=== PATIENT | female | born 1985 | race Caucasian/White ===

== ENCOUNTER 2016-09-28 18:19 | Observation (INO) | payer BC, MEDICAID ==
[2016-09-28] MEDS ORDERED: DEXAMETHASONE 10 MG/ML VIAL PO STA (19:51)
[2016-09-28] MEDS ORDERED: ALBUTEROL NEB 2.5 MG/3 ML INH STA (19:51)
[2016-09-28] MEDS ORDERED: CHERRY SYRUP 10 ML UDC PO ONE (19:59)
[2016-09-28] MEDS ORDERED: DEXAMETHASONE 10 MG/ML VIAL ONE (19:59)
[2016-09-28] MEDS ORDERED: ALBUTEROL NEB 2.5 MG/3 ML INH ONE (19:59)
[2016-09-28] MEDS ORDERED: IOPAMIDOL-300 100 ML VIAL IVP ONE (21:06)
[2016-09-28] MEDS ORDERED: COLCHICINE 0.6 MG TABLET PO STA (22:02)
[2016-09-28] MEDS ORDERED: IBUPROFEN 800 MG TABLET PO STA (22:03)
[2016-09-28] MEDS ORDERED: TEMAZEPAM 15 MG CAPSULE PO PRN (22:17)
[2016-09-28] MEDS ORDERED: ONDANSETRON 4 MG/2 ML VIAL IVP PRN (22:17)
[2016-09-28] MEDS ORDERED: ACETAMINOPHEN 325 MG TABLET PO PRN (22:17)
[2016-09-28] MEDS ORDERED: IBUPROFEN 800 MG TABLET PO ONE (22:23)
[2016-09-28] MEDS ORDERED: KETOROLAC 30 MG/ML VIAL ONE (22:25)
[2016-09-28] MEDS ORDERED: KETOROLAC 60 MG/2 ML VIAL IVP STA (22:26)
[2016-09-28] MEDS ORDERED: ALBUTEROL NEB 2.5 MG/3 ML INH PRN (22:33)
[2016-09-28] MEDS: MORPHINE 2 MG/ML SYRINGE IVP PRN (23:40)
[2016-09-29] MEDS: LORazepam 2 MG/ML SYRINGE IVP PRN ×3 (00:45→12:35)
[2016-09-29] MEDS: MORPHINE 2 MG/ML SYRINGE IVP PRN ×2 (03:16→10:37)
[2016-09-29] MEDS: IBUPROFEN 800 MG TABLET PO SCH ×3 (06:36→21:14)
[2016-09-29] MEDS: SODIUM CHLORIDE FLUSH 0.9% 10 ML SYRINGE IVP SCH ×3 (06:37→21:15)
[2016-09-29] MEDS: SODIUM CHLORIDE FLUSH 0.9% 10 ML SYRINGE IVP PRN ×2 (10:38→12:35)
[2016-09-29] MEDS: ENOXAPARIN 40 MG/0.4 ML SYRINGE SUBQ SCH (10:39)
[2016-09-29] MEDS: COLCHICINE 0.6 MG TABLET PO SCH ×2 (10:45→21:14)
[2016-09-29] MEDS: POLYETHYLENE GLYCOL 3350 17 GM PACKET PO SCH (10:45)
[2016-09-30] MEDS: IBUPROFEN 800 MG TABLET PO SCH (06:09)
[2016-09-30] MEDS: SODIUM CHLORIDE FLUSH 0.9% 10 ML SYRINGE IVP SCH (06:09)
[2016-09-30] MEDS: POLYETHYLENE GLYCOL 3350 17 GM PACKET PO SCH (08:26)
[2016-09-30] MEDS: COLCHICINE 0.6 MG TABLET PO SCH (08:28)
[2016-09-30] MEDS: ENOXAPARIN 40 MG/0.4 ML SYRINGE SUBQ SCH (08:29)
[2016-09-30] MEDS ORDERED: SENNA 8.6 MG TABLET PO SCH (09:00)
[2016-09-30] MEDS ORDERED: DOCUSATE SODIUM 250 MG CAPSULE PO SCH (09:00)
== END 2016-09-30 09:50 | disposition home or self-care (01) ==
DX: I31.9 Disease of pericardium, unspecified (principal); R23.8 Other skin changes; R78.1 Finding of opiate drug in blood; R78.5 Finding of other psychotropic drug in blood; Z87.74 Personal history of (corrected) congenital malformations of heart and circulatory system
CPT/HCPCS: 36415; 71010; 71275; 80048; 80053; 80306; 81001; 82550; 82553; 83690; 83735; 84100; 84443; 84484; 85025; 85651; 86038; 86140; 87150; 93005; 93010; 93306; 96372; 96374; 96375; 96376; 99217; 99218; 99224; 99284; A9270; J1650; J2060; J7613; Q9967

== ENCOUNTER 2017-03-13 20:10 | Emergency (ER) | payer BC, MEDICAID ==
--- NOTE | 2017-03-13 21:16 | ED Physician Documentation ---
PD HPI CHEST PAIN - Stated complaint Stated Complaint: L SIDE RIB PX,FAST HB - Chief complaint Chief Complaint: Resp - History obtained from History obtained from: Patient - History of Present Illness Timing - onset: Other (31-year-old woman with history of childhood pectus excavatum repair was admitted here earlier this year for small pericardial effusion. Today at 1230 without antecedent trauma or movement she developed sharp left-sided chest pain worse with breathing. There is no associated cough , hemoptysis, pedal edema, or calf pain. No recent surgery or travel. She is not on exogenous estrogens. No possibility of . 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 - Present Medications Home Medications: Ambulatory Orders Medication Instructions Recorded Confirmed Albuterol Sulfate [Proair Hfa 2 puffs INH Q4H PRN 09/29/16 03/13/17 Inhaler] Ibuprofen [Motrin] 800 mg PO Q8H PRN #30 tablet 03/13/17 - Allergies Allergies/Adverse Reactions: Allergies Allergy/AdvReac Type Severity Reaction Status Date / Time Penicillins Allergy Unknown Verified 10/29/16 21:58 - Social History Does the pt smoke?: No Smoking Status: Never smoker Does the pt drink ETOH?: No Does the pt have substance abuse?: No - Immunizations Immunizations are current?: Yes - POLST Patient has POLST: No PD ED PE NORMAL - Vitals Vital signs reviewed: Yes - General General: Alert and oriented X 3, No acute distress - Cardiac Cardiac: RRR, No murmur, Other (Bedside ultrasound demonstrates no pericardial effusion) - Respiratory Respiratory: No respiratory distress, Clear bilaterally - Extremities Extremities: No edema, No calf tenderness / cord - Neuro Neuro: Alert and oriented X 3, Normal speech - Psych Psych: Normal mood, Normal affect Results - Vitals Vitals: Vital Signs - 24 hr 03/13/17 20:21 Temperature 36.6 C Heart Rate 80 Respiratory 18 Rate Blood Pressure 138/86 H O2 Saturation 99 Oxygen O2 Source Room air - EKG (time done) 2121 Rate: Rate (enter#) (70) Rhythm: NSR [place]: Normal Intervals: Normal [place] QRS: Normal Ischemia: Non specific changes (Flattened inferior and anterior T waves, unchanged from October 29 this year.) Computer interpretation: Agree with computer - Rads (name of study) 2v chest Radiology: EMP read contemporaneously (NAD) PD MEDICAL DECISION MAKING - ED course ED course: I considered pulmonary embolism in this patient. Clinically the pretest probability of pulmonary embolism is less than 15%. I applied to the PERC rules as follows: The patient's age is under 50, heart rate less than 100, oxygen saturation greater than 94%, the patient does not have a history of DVT or PE. Patient has no recent trauma or surgery. The patient has no hemoptysis. The patient is not on exogenous estrogens. The patient does not have clinical signs suggesting DVT. As such the patient ruled out for pulmonary embolism by PERC criteria. Departure - Departure Disposition: Home, Self Care Clinical Impression: Pleurisy Condition: Good Record reviewed to determine appropriate education?: Yes Instructions: ED Chest Pain Pleurisy Prescriptions: Ibuprofen [Motrin] 800 mg PO Q8H PRN #30 tablet PRN Reason: PAIN &/OR FEVER Comments: Call your doctor to arrange a follow-up appointment, make the next available appointment. In the interim, return anytime if worse or if new symptoms develop. Your blood pressure was elevated today on check into the emergency department. This does not mean that you have hypertension, it is a common phenomenon to come to the emergency department and have elevated blood pressure. I recommend that she see her primary care physician within the week to have it rechecked when you are feeling better.
--- NOTE | 2017-03-13 22:05 | XRAY Preliminary Report ---
Exam: XR Chest 2 View PA/LAT IMPRESSION: Negative 2-view chest radiography. [facility] SITE ID: [id number]
--- NOTE | 2017-03-13 22:07 | XRAY Report ---
EXAM: CHEST RADIOGRAPHY EXAM DATE: 03/13/2017 09:50 PM. CLINICAL HISTORY: Chest pain, pleuritic left. COMPARISON: 10/29/2016, CT 09/28/2016. TECHNIQUE: 2 views. FINDINGS: Lungs/Pleura: No focal opacities evident. No pleural effusion. No pneumothorax. Normal volumes. Mediastinum: Heart and mediastinal contours are unremarkable. Other: Mild pectus excavatum. Previous median sternotomy. IMPRESSION: Negative 2-view chest radiography. [facility] Referring Provider Line: [phone] SITE ID: [id number]
[2017-03-13 22:21] VITALS: BP 138/74
== END 2017-03-13 22:23 | disposition home or self-care (01) ==
LOC: ED 20:10
DX: R09.1 Pleurisy (principal); R03.0 Elevated blood-pressure reading, without diagnosis of hypertension; Z87.76 Personal history of (corrected) congenital malformations of integument, limbs and musculoskeletal system; Z87.01 Personal history of pneumonia (recurrent); Z86.79 Personal history of other diseases of the circulatory system
CPT/HCPCS: 71020; 93005; 99283; 99284

== ENCOUNTER 2017-07-01 19:59 | Emergency (ER) | payer BC, MEDICAID ==
[2017-07-01] MEDS ORDERED: BENZONATATE 100 MG CAPSULE PO STA (20:47)
[2017-07-01] MEDS ORDERED: DEXAMETHASONE 10 MG/ML VIAL PO STA (20:47)
--- NOTE | 2017-07-01 20:50 | ED Physician Documentation ---
PD HPI URI - Stated complaint Stated Complaint: SORE THROAT - Chief complaint Chief Complaint: Heent - History obtained from History obtained from: Patient - History of Present Illness Timing - onset: How many weeks ago (2) Timing duration: Weeks (2) Timing details: Gradual onset Pain level max: 3 Pain level now: 3 Associated symptoms: Nasal congestion, Rhinorrhea, Productive cough (clear phlegm, small specks of blood today). No: Fever, Chills Contributing factors: No: Sick contact, Travel, Immunocompromised, Unimmunized, COPD / asthma Improves by: Rest Worsened by: Activity, Breathing Similar symptoms before: Has not had sx before Recently seen: Not recently seen Review of Systems Ten Systems: 10 systems reviewed and negative Constitutional: denies: Fever, Chills GI: denies: Vomiting Skin: denies: Rash Musculoskeletal: denies: Neck pain, Back pain Neurologic: denies: Headache PD PAST MEDICAL HISTORY - Past Medical History Past Medical History: Yes Cardiovascular: None Respiratory: Pneumonia Neuro: None Endocrine/Autoimmune: None GI: None 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 - Present Medications Home Medications: Ambulatory Orders Medication Instructions Recorded Confirmed Albuterol Sulfate [Proair Hfa 2 puffs INH Q4H PRN 09/29/16 03/13/17 Inhaler] Ibuprofen [Motrin] 800 mg PO Q8H PRN #30 tablet 03/13/17 Benzonatate [Tessalon Perle] 100 - 200 mg PO TID PRN #30 capsule 07/01/17 Cetirizine HCl/Pseudoephedrine 1 each PO BID PRN #30 tab.er.12h 07/01/17 [Zyrtec-D Tablet] - Allergies Allergies/Adverse Reactions: Allergies Allergy/AdvReac Type Severity Reaction Status Date / Time Penicillins Allergy Unknown Verified 07/01/17 20:05 - Social History Does the pt smoke?: No Smoking Status: Never smoker Does the pt drink ETOH?: No Does the pt have substance abuse?: No - Immunizations Immunizations are current?: Yes Immunizations: TDAP >10years/unknown - POLST Patient has POLST: No PD ED PE NORMAL - Vitals Vital signs reviewed: Yes - General General: Alert and oriented X 3, No acute distress, Well developed/nourished - HEENT HEENT: PERRL, Ears normal, Moist mucous membranes, Pharynx benign - Neck Neck: Supple, no meningeal sign, No adenopathy - Cardiac Cardiac: RRR, Strong equal pulses - Respiratory Respiratory: No respiratory distress, Clear bilaterally - Abdomen Abdomen: Soft, Non tender, Non distended - Back Back: No CVA TTP, No spinal TTP - Derm Derm: Warm and dry, No rash - Neuro Neuro: Alert and oriented X 3 - Psych Psych: Normal mood, Normal affect Results - Vitals Vitals: Vital Signs - 24 hr 07/01/17 07/01/17 20:02 21:05 Temperature 36.7 C 36.8 C Heart Rate 87 86 Respiratory 20 16 Rate Blood Pressure 124/88 H 119/85 H O2 Saturation 99 100 Oxygen O2 Source Room air - Labs Labs: Laboratory Tests 07/01/17 20:34 Group A Strep Rapid Negative PD MEDICAL DECISION MAKING - ED course Complexity details: reviewed results, re-evaluated patient, considered differential, d/w patient ED course: Patient is a 31-year-old female with what appears to be a viral upper respiratory infection complicated by laryngitis. She has lost her voice over the past 2 days. Given dexamethasone here. Will place on cough medication as well as decongestants for home. She is very well-appearing, nontoxic. Afebrile. No evidence of peritonsillar abscess, strep. Patient counseled regarding signs and symptoms for which I believe and urgent re-evaluation would be necessary. Patient with good understanding of and agreement to plan and is comfortable going home at this time This document was made in part using voice recognition software. While efforts are made to proofread this document, sound alike and grammatical errors may occur. Departure - Departure Disposition: 01 Home, Self Care Clinical Impression: Viral URI Condition: Good Instructions: ED Laryngitis, ED URI Viral Follow-Up: Ortega Tidwell MD [Primary Care Provider] - Within 1 week Prescriptions: Benzonatate [Tessalon Perle] 100 - 200 mg PO TID PRN #30 capsule PRN Reason: Cough Cetirizine HCl/Pseudoephedrine [Zyrtec-D Tablet] 1 each PO BID PRN #30 tab.er.12h PRN Reason: Nasal Congestion Comments: Drink plenty of fluids. Return if you worsen. Rest your voice as much as possible. Discharge Date/Time: 07/01/17 21:05
[2017-07-01] MEDS ORDERED: DEXAMETHASONE 10 MG/ML VIAL ONE (21:00)
[2017-07-01] MEDS ORDERED: BENZONATATE 100 MG CAPSULE PO ONE (21:00)
[2017-07-01 21:07] VITALS: BP 119/85
[2017-07-01 21:19] LABS: RAPID STREP SCREEN REAGENT QC YELLOW (YELLOW)
== END 2017-07-01 21:05 | disposition home or self-care (01) ==
LOC: ED 19:59
DX: J06.9 Acute upper respiratory infection, unspecified (principal); B97.89 Other viral agents as the cause of diseases classified elsewhere
CPT/HCPCS: 87070; 87430; 99283; A9270

== ENCOUNTER 2017-12-27 12:48 | Outpatient (CLI) | payer BC, MEDICAID ==
[2017-12-27] MEDS ORDERED: GADOBUTROL 7.5 MMOL/7.5 ML SYRINGE ONE (13:12)
[2017-12-27] MEDS ORDERED: GADOBUTROL 7.5 MMOL/7.5 ML SYRINGE IVP ONE (13:55)
--- NOTE | 2017-12-28 12:42 | MRI Report ---
EXAM: MRI BRAIN WITHOUT AND WITH CONTRAST EXAM DATE: 12/27/2017 01:00 PM. CLINICAL HISTORY: 4-5 week history of bilateral blurred vision and visual impairment in both eyes. COMPARISON: None. TECHNIQUE: Multiplanar, multisequence T1-weighted and fluid-sensitive MR sequences of the brain were performed. Sequences optimized for orbits evaluation. Other: None. IV Contrast: 5.5 mL Gadavist . FINDINGS: Brain Volume: Normal for age. Parenchyma: No acute hemorrhage, mass, or infarct. No white matter lesions identified. No abnormal en hancement. Ventricles/Cisterns: No hydrocephalus. No abnormal extra-axial fluid collection or hemorrhage. Orbits: Symmetric and unremarkable. No evidence for an intraorbital mass, abnormal enhancement or pro ptosis. Unremarkable symmetric appearance of the lacrimal glands and extraocular muscles. No abnormal superior ophthalmic vein enlargement. No focal intraocular lesion. No edema or abnormal enhancement of the optic nerves. Unremarkable appearance of the optic chiasm. Sella [place]: The pituitary gland, cavernous sinuses, suprasellar cistern and optic chiasm are unrem arkable. IAC: Symmetric and unremarkable. Vasculature: Normal signal flow void is seen in the major arterial structures at the skull base. The dural sinuses are patent and enhance normally. Sinuses: Mild mucosal thickening in the paranasal sinuses, especially left ethmoid and maxillary. A l eft maxillary sinus air-fluid level may be present. Bones: No focal pathologic appearing marrow signal changes. Other: None. IMPRESSION: 1.Unremarkable MRI appearance of the brain and orbits. 2. Sinusitis, most evident in the left maxillary and ethmoid sinuses. [facility] Referring Provider Line: [phone] SITE ID: [id number]
== END 2017-12-27 12:49 | disposition home or self-care (01) ==
LOC: DI 12:48
PROVIDERS: ATTEND Ophthalmology
DX: H54.3 Unqualified visual loss, both eyes (principal); J32.0 Chronic maxillary sinusitis; J32.2 Chronic ethmoidal sinusitis
CPT/HCPCS: 70543; A9585

== ENCOUNTER 2018-01-25 21:30 | Emergency (ER) | payer BC, MEDICAID ==
--- NOTE | 2018-01-25 21:37 | ED Physician Documentation ---
PD HPI CHEST PAIN - Stated complaint Stated Complaint: CHEST PX - History obtained from History obtained from: Patient - History of Present Illness Timing - onset: How many days ago (2) Timing - duration: Days Timing - details: Abrupt onset, Intermittant, Waxing and waning Pain level max: 10 Pain level now: 5 Quality: Pain Location: Substernal (low midline chest) Radiation: Other (does not radiate) Improved by: Nothing Worsened by: Other (no exacerbating factors) Associated symptoms: No: Shortness of air, Diaphoresis, Nausea, Vomiting, Feeling faint / dizzy, Palpitations, Cough Recently seen: Other (similar symptoms last year, had inpatient w/u without diagnostic results (small pericardial effusion on CT but trivial on echo)) Review of Systems Constitutional: denies: Fever, Chills, Sweats Cardiac: reports: Chest pain / pressure. 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 - Present Medications Home Medications: Ambulatory Orders Medication Instructions Recorded Confirmed HYDROcod/ACETAM 5/325 [[place] 5/325] 1 - 2 ea PO Q6H PRN #15 tablet 01/26/18 LORazepam [Ativan] 0.5 - 1 mg PO Q6H PRN #14 tablet 01/26/18 - Allergies Allergies/Adverse Reactions: Allergies Allergy/AdvReac Type Severity Reaction Status Date / Time bee venom protein (honey bee) Allergy Anaphylaxis Verified 01/25/18 21:37 Penicillins Allergy Unknown Verified 07/01/17 20:05 - Social History Does the pt smoke?: No Smoking Status: Never smoker Does the pt drink ETOH?: No Does the pt have substance abuse?: No - Immunizations Immunizations are current?: Yes Immunizations: TDAP >10years/unknown - POLST Patient has POLST: No PD ED PE NORMAL - Vitals Vital signs reviewed: Yes - General General: Alert and oriented X 3, No acute distress, Well developed/nourished - Cardiac Cardiac: RRR, No murmur, No gallop, No rub - Respiratory Respiratory: No respiratory distress, Clear bilaterally - Abdomen Abdomen: Soft, Non tender - Derm Derm: Normal color, Warm and dry - Extremities Extremities: No edema Results - Vitals Vitals: Vital Signs - 24 hr 01/25/18 01/26/18 21:34 00:13 Temperature 36.4 C L 36.4 C L Heart Rate 97 70 Respiratory 16 20 Rate Blood Pressure 144/92 H 128/94 H O2 Saturation 98 99 Oxygen O2 Source Room air - EKG (time done) No standard instances Rate: Rate (enter#) (78) Rhythm: NSR [place]: Normal Intervals: Normal [place] QRS: Normal Ischemia: Normal ST segments, T wave inversion (V2, V3) Compare to prior EKG: Unchanged from prior EKG - Labs Labs: Laboratory Tests 01/25/18 01/25/18 01/25/18 22:20 22:20 22:20 WBC 10.3 RBC 4.94 Hgb 14.5 Hct 43.4 MCV 87.9 MCH 29.3 MCHC 33.4 RDW 13.4 Plt Count 300 MPV 7.4 L Neut # (Auto) 5.8 Lymph # (Auto) 3.2 [place] # (Auto) 0.9 Eos # (Auto) 0.4 Baso # (Auto) 0.1 Absolute Nucleated RBC 0.00 Nucleated RBC % 0.0 ESR Sodium 135 Potassium 3.3 L Chloride 104 Carbon Dioxide 23 Anion Gap 8.0 BUN 18 Creatinine 0.5 Estimated GFR (MDRD) 142 Glucose 97 Calcium 9.3 Total Bilirubin 0.8 AST 20 ALT 19 Alkaline Phosphatase 62 Total Creatine Kinase 356 H CK-MB (CK-2) 1.6 Troponin I 0.05 C-Reactive Protein < 1.0 Total Protein 7.2 Albumin 3.9 Globulin 3.3 Albumin/Globulin Ratio 1.2 Lipase 45 01/25/18 22:20 WBC RBC Hgb Hct MCV MCH MCHC RDW Plt Count MPV Neut # (Auto) Lymph # (Auto) [place] # (Auto) Eos # (Auto) Baso # (Auto) Absolute Nucleated RBC Nucleated RBC % ESR 1 Sodium Potassium Chloride Carbon Dioxide Anion Gap BUN Creatinine Estimated GFR (MDRD) Glucose Calcium Total Bilirubin AST ALT Alkaline Phosphatase Total Creatine Kinase CK-MB (CK-2) Troponin I C-Reactive Protein Total Protein Albumin Globulin Albumin/Globulin Ratio Lipase PD MEDICAL DECISION MAKING - ED course Complexity details: reviewed old records, reviewed results, re-evaluated patient , considered differential, d/w patient ED course: At the end of initial H+P, before I left the room, patient suddenly appeared to be in obvious pain, leaning forward in stretcher. Vital signs remained stable and episode spontaneously improved within 15-20 seconds. On reevaluation, after tests resulted, patient reported significant improvement after IV toradol and GI cocktail. - Sepsis Event Vital Signs: Vital Signs - 24 hr 01/25/18 01/26/18 21:34 00:13 Temperature 36.4 C L 36.4 C L Heart Rate 97 70 Respiratory 16 20 Rate Blood Pressure 144/92 H 128/94 H O2 Saturation 98 99 Oxygen O2 Source Room air Departure - Departure Disposition: 01 Home, Self Care Clinical Impression: Chest pain Condition: Good Instructions: ED Chest Pain Atypical Unkn Cause Follow-Up: Ortega Tidwell MD [Primary Care Provider] - (Call in the morning to arrange for next available appointment) Prescriptions: HYDROcod/ACETAM 5/325 [[place] 5/325] 1 - 2 ea PO Q6H PRN #15 tablet PRN Reason: Pain LORazepam [Ativan] 0.5 - 1 mg PO Q6H PRN #14 tablet PRN Reason: Anxiety Forms: Activity restrictions Discharge Date/Time: 01/26/18 00:46
[2018-01-25] MEDS ORDERED: LIDOCAINE VISCOUS 2% 15 ML UDC MM STA (21:56)
[2018-01-25] MEDS ORDERED: PHENobarb/HYOSCY/ATROPINE/SCOP 5 ML UDC PO STA (21:56)
[2018-01-25] MEDS ORDERED: MAG HYDROX/AL HYDROX/SIMETH 30 ML UDC PO STA (21:56)
[2018-01-25] MEDS ORDERED: KETOROLAC 60 MG/2 ML VIAL IVP STA (21:56)
[2018-01-25 22:27] LABS: BASOPHILS # (AUTO) 0.1 10^3/uL (0.0-0.1); BASOPHILS % (AUTO) 1.1 %; EOSINOPHILS # (AUTO) 0.4 10^3/uL (0.0-0.7); EOSINOPHILS % (AUTO) 3.7 %; HGB - HEMOGLOBIN 14.5 g/dL (12.0-16.0); LYMPHOCYTES # (AUTO) 3.2 10^3/uL (1.5-3.5); LYMPHOCYTES % (AUTO) 30.7 %; MEAN CORPUSCULAR HEMOGLOBIN 29.3 pg (27.0-31.0); MEAN CORPUSCULAR HGB CONC 33.4 g/dL (32.0-36.0); MEAN CORPUSCULAR VOLUME 87.9 fL (81.0-99.0); MEAN PLATELET VOLUME 7.4 fL (7.9-10.8); MONOCYTES # (AUTO) 0.9 10^3/uL (0.0-1.0); MONOCYTES % (AUTO) 8.6 %; NEUTROPHILS # (AUTO) 5.8 10^3/uL (1.5-6.6); NEUTROPHILS % (AUTO) 55.9 %; PLT - PLATELET COUNT 300 10^3/uL (130-450); RED BLOOD COUNT 4.94 10^6/uL (4.20-5.40); RED CELL DISTRIBUTION WIDTH 13.4 % (12.0-15.0); WHITE BLOOD COUNT 10.3 x10^3/uL (4.8-10.8)
[2018-01-25 22:44] LABS: TROPONIN I 0.05 ng/mL (<0.49)
[2018-01-25 22:46] LABS: ALBUMIN 3.9 g/dL (3.2-5.5); ALBUMIN/GLOBULIN RATIO 1.2 (1.0-2.2); ALKALINE PHOSPHATASE 62 IU/L (42-121); ALT ALANINE AMINOTRANSFERASE 19 IU/L (10-60); AST ASPARTATE AMINOTRANSFERASE 20 IU/L (10-42); BILIRUBIN,TOTAL 0.8 mg/dL (0.2-1.0); BUN - BLOOD UREA NITROGEN 18 mg/dL (6-20); CALCIUM 9.3 mg/dL (8.5-10.3); CARBON DIOXIDE - CO2 23 mmol/L (21-32); CHLORIDE 104 mmol/L (101-111); CK- CREATINE KINASE 356 IU/L (22-269); CREATINE KINASE MB 1.6 ng/mL (0.6-6.3); CREATININE 0.5 mg/dL (0.4-1.0); GFR - MDRD 142 (>89); GLUCOSE 97 mg/dL (70-100); LIPASE 45 U/L (22-51); SODIUM 135 mmol/L (135-145); TOTAL PROTEIN 7.2 g/dL (6.7-8.2)
[2018-01-25 23:12] LABS: CRP - C-REACTIVE PROTEIN < 1.0 mg/dL (0-1.0)
[2018-01-25] MEDS ORDERED: HYDROcod/ACET 5/325 Prepack 4 PO STA (23:59)
[2018-01-26 00:14] VITALS: BP 128/94
== END 2018-01-26 00:46 | disposition home or self-care (01) ==
LOC: ED 21:30
DX: R07.9 Chest pain, unspecified (principal)
CPT/HCPCS: 36415; 80053; 82550; 82553; 83690; 84484; 85025; 85651; 86140; 93005; 96374; 99283; A9270

== ENCOUNTER 2018-04-29 21:14 | Emergency (ER) | payer BC, MEDICAID ==
[2018-04-29 21:22] VITALS: BP 138/84
--- NOTE | 2018-04-29 21:40 | ED Physician Documentation ---
History of Present Illness - Stated complaint Stated Complaint: BREAST PX - Chief complaint Chief Complaint: General - History obtained from History obtained from: Patient - History of Present Illness Pain level max: 0 Pain level now: 0 Improved by: nothing Worsened by: palpation - Additonal information Additional information: Patient is a 32 year old female who presents to the emergency department with c/o breast pain bilaterally. Started today. She feels like she has felt lumps in her bilateral breasts. Does have a family history of breast cancer. No erythema. No drainage. Is not breast-feeding or . 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 - Present Medications Home Medications: Ambulatory Orders Medication Instructions Recorded Confirmed Cephalexin [Keflex] 500 mg PO Q6H #28 capsule 04/29/18 - Allergies Allergies/Adverse Reactions: Allergies Allergy/AdvReac Type Severity Reaction Status Date / Time bee venom protein (honey bee) Allergy Anaphylaxis Verified 04/29/18 21:21 Penicillins Allergy Unknown Verified 04/29/18 21:21 - Social History Does the pt smoke?: No Smoking Status: Never smoker Does the pt drink ETOH?: No Does the pt have substance abuse?: No - Immunizations Immunizations are current?: Yes Immunizations: TDAP >10years/unknown - POLST Patient has POLST: No PD ED PE NORMAL - Vitals Vital signs reviewed: Yes - General General: Alert and oriented X 3, No acute distress - Derm Derm: Warm and dry - Neuro Neuro: Alert and oriented X 3 - Free text exam Free text exam: B breast exam. normal external exam other than mild erythema to the B breasts. No nipple discharge. no lymphadenopathy. no discrete masses on exam. Results - Vitals Vitals: Vital Signs - 24 hr 04/29/18 21:18 Temperature 36.5 C Heart Rate 82 Respiratory 16 Rate Blood Pressure 138/84 H O2 Saturation 100 Oxygen O2 Source Room air PD MEDICAL DECISION MAKING - ED course Complexity details: considered differential, d/w patient ED course: Patient is a 32-year-old female with bilateral breast pain. Unclear etiology, but feels consistent with fibrocystic change. No nasal drainage. No abscess. Will place on Keflex and follow-up with her doctor in case there is an early infection. Patient counseled regarding signs and symptoms for which I believe and urgent re-evaluation would be necessary. Patient with good understanding of and agreement to plan and is comfortable going home at this time This document was made in part using voice recognition software. While efforts are made to proofread this document, sound alike and grammatical errors may occur. - Sepsis Event Vital Signs: Vital Signs - 24 hr 04/29/18 21:18 Temperature 36.5 C Heart Rate 82 Respiratory 16 Rate Blood Pressure 138/84 H O2 Saturation 100 Oxygen O2 Source Room air Departure - Departure Disposition: 01 Home, Self Care Clinical Impression: Breast pain Condition: Good Instructions: ED Breast Infec Follow-Up: Ortega Tidwell MD [Primary Care Provider] - Within 1 week Prescriptions: Cephalexin [Keflex] 500 mg PO Q6H #28 capsule Comments: return if you worsen. Take all antibiotics until gone. Follow up with your doctor for further evaluation and care. You would benefit from a mammogram Discharge Date/Time: 04/29/18 21:56
[2018-04-29] MEDS ORDERED: cephALEXin 250 MG CAPSULE PO STA (21:41)
== END 2018-04-29 21:56 | disposition home or self-care (01) ==
LOC: ED 21:14
DX: N64.4 Mastodynia (principal)
CPT/HCPCS: 99283; A9270

== ENCOUNTER 2018-10-16 19:19 | Emergency (ER) | payer BC ==
[2018-10-16 19:35] VITALS: BP 133/77
[2018-10-16] MEDS ORDERED: ONDANSETRON ODT 4 MG TABLET TL STA (20:19)
[2018-10-16] MEDS ORDERED: IBUPROFEN 800 MG TABLET PO STA (20:19)
--- NOTE | 2018-10-16 20:22 | ED Physician Documentation ---
PD HPI URI - Stated complaint Stated Complaint: BODY PX/CHILLS/VOMOTING - Chief complaint Chief Complaint: Fever - History obtained from History obtained from: Patient - History of Present Illness Timing - onset: Other (This is a 32-year-old woman with pectus excavatum, no possibility of who is been sick for a little over 48 hours with cough, nausea, body aches, fevers and chills. Her daughter was recently sick with similar illness. No recent travel.) Review of Systems Constitutional: reports: Fever, Chills, Myalgias, Fatigue Nose: reports: Rhinorrhea / runny nose Throat: reports: Sore throat Respiratory: reports: Cough. denies: Dyspnea GI: reports: Nausea, Vomiting. 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 - Present Medications Home Medications: Ambulatory Orders Medication Instructions Recorded Confirmed Cephalexin [Keflex] 500 mg PO Q6H #28 capsule 04/29/18 Ibuprofen [Motrin] 800 mg PO Q8H PRN #14 tablet 10/16/18 Ondansetron Odt [Zofran] 4 mg TL Q6H PRN #10 tablet 10/16/18 - Allergies Allergies/Adverse Reactions: Allergies Allergy/AdvReac Type Severity Reaction Status Date / Time bee venom protein (honey bee) Allergy Anaphylaxis Verified 10/16/18 19:35 Penicillins Allergy Unknown Verified 10/16/18 19:35 - Social History Does the pt smoke?: No Smoking Status: Never smoker Does the pt drink ETOH?: No Does the pt have substance abuse?: No - Immunizations Immunizations are current?: Yes Immunizations: TDAP >10years/unknown - POLST Patient has POLST: No PD ED PE NORMAL - Vitals Vital signs reviewed: Yes - General General: Alert and oriented X 3, No acute distress - HEENT HEENT: PERRL, Ears normal, Moist mucous membranes, Pharynx benign - Neck Neck: Supple, no meningeal sign, No bony TTP - Cardiac Cardiac: RRR, No murmur - Respiratory Respiratory: No respiratory distress, Clear bilaterally - Abdomen Abdomen: Non tender, Non distended - Derm Derm: No rash - Neuro Neuro: Alert and oriented X 3, Normal speech Results - Vitals Vitals: Vital Signs - 24 hr 10/16/18 19:33 Temperature 38.9 C H Heart Rate 102 H Respiratory 18 Rate Blood Pressure 133/77 H O2 Saturation 98 Oxygen O2 Source Room air - Labs Labs: Laboratory Tests 10/16/18 19:55 Influenza A (Rapid) POSITIVE H Influenza B (Rapid) Negative PD MEDICAL DECISION MAKING - ED course ED course: This is a 32-year-old woman with influenza. She is outside of the expected time frame for efficacy for antivirals and is treated symptomatically. Departure - Departure Disposition: 01 Home, Self Care Clinical Impression: Influenza Condition: Good Record reviewed to determine appropriate education?: Yes Instructions: ED Flu Prescriptions: Ibuprofen [Motrin] 800 mg PO Q8H PRN #14 tablet PRN Reason: PAIN &/OR FEVER Ondansetron Odt [Zofran] 4 mg TL Q6H PRN #10 tablet PRN Reason: Nausea / Vomiting Comments: Drink plenty of fluids. Return for new or worsening symptoms. Forms: Activity restrictions Discharge Date/Time: 10/16/18 20:27
== END 2018-10-16 20:27 | disposition home or self-care (01) ==
LOC: ED 19:19
DX: J11.1 Influenza due to unidentified influenza virus with other respiratory manifestations (principal); Q67.6 Pectus excavatum; Z87.01 Personal history of pneumonia (recurrent)
CPT/HCPCS: 87275; 87276; 99283; A9270; Q0162

== ENCOUNTER 2018-10-21 11:54 | Emergency (ER) | payer OTHER, BC ==
[2018-10-21 12:01] VITALS: BP 130/93
--- NOTE | 2018-10-21 13:44 | ED Physician Documentation ---
PD HPI UPPER EXT INJURY - Stated complaint Stated Complaint: L THUMB LAC - Chief complaint Chief Complaint: Laceration - History obtained from History obtained from: Patient - History of Present Illness Location: Left, Finger (thumb) Type of injury: Laceration (with box content assistant) Where injury occurred: Work (She cut her thumb at work and was directed to come to the ER for evaluation.) Timing - onset: How many hours ago (1) Timing - details: Abrupt onset Worsened by: Palpating. No: Moving Associated symptoms: No: Weakness, Numbness, Tingling Similar symptoms before: Has not had sx before Recently seen: Not recently seen Review of Systems Skin: reports: Laceration (s) Neurologic: denies: Focal weakness, Numbness PD PAST MEDICAL HISTORY - Past Medical History Past Medical History: Yes Cardiovascular: None Respiratory: Pneumonia Endocrine/Autoimmune: None GI: None WATCH CASER: None : None HEENT: None Psych: None Musculoskeletal: None Derm: None - Past Surgical History Past Surgical History: Yes /WATCH CASER: section - Present Medications Home Medications: Ambulatory Orders Medication Instructions Recorded Confirmed No Known Home Medications 10/21/18 10/21/18 - Allergies Allergies/Adverse Reactions: Allergies Allergy/AdvReac Type Severity Reaction Status Date / Time bee venom protein (honey bee) Allergy Anaphylaxis Verified 10/21/18 11:58 Penicillins Allergy Unknown Verified 10/21/18 11:58 - Social History Does the pt smoke?: No Smoking Status: Never smoker Does the pt drink ETOH?: No Does the pt have substance abuse?: No - Immunizations Immunizations are current?: Yes Immunizations: TDAP >10years/unknown - POLST Patient has POLST: No PD ED PE NORMAL - Vitals Vital signs reviewed: Yes - General General: Alert and oriented X 3, No acute distress, Well developed/nourished - Derm Derm: Normal color, Warm and dry - Extremities Extremities: Other (Left thumb shows a laceration at the radial side of the nailbed with a laceration extending just 4-5 mm to the side of the nailbed. There is no gapping of the wound. There is no foreign body and no active bleeding. The nail itself has a laceration running through it and there is some slight bit of blood apparent under the nail. There is no misalignment of the nail bed. There is no injury at the proximal nychial fold.) Results - Vitals Vitals: Vital Signs - 24 hr 10/21/18 11:56 Temperature 36.1 C L Heart Rate 92 Respiratory 16 Rate Blood Pressure 130/93 H O2 Saturation 100 Oxygen O2 Source Room air PD MEDICAL DECISION MAKING - ED course Complexity details: considered differential (The wound was small enough they could be treated with Steri-Strips and benzoin. This was done after cleansing it.), d/w patient Departure - Departure Disposition: 01 Home, Self Care Clinical Impression: Laceration of thumb Qualifiers: Encounter type: initial encounter Damage to nail status: with damage Foreign body presence: without foreign body Laterality: left Qualified Code(s): S61.112A - Laceration without foreign body of left thumb with damage to nail, initial encounter Condition: Stable Record reviewed to determine appropriate education?: Yes Instructions: ED Laceration Hand Comments: Keep the wound clean and dry. Allow the Steri-Strips to fall off on their own over several days to week or so. Tylenol or ibuprofen if needed for pains. Once the Steri-Strips fall off, then just do routine cleaning with soap and water and apply some ointment. Recheck of infection. Discharge Date/Time: 10/21/18 14:07
== END 2018-10-21 14:07 | disposition home or self-care (01) ==
LOC: ED 11:54
DX: S61.112A Laceration without foreign body of left thumb with damage to nail, initial encounter (principal); W27.8XXA Contact with other nonpowered hand tool, initial encounter; Y92.89 Other specified places as the place of occurrence of the external cause; Y99.0 Civilian activity done for income or pay
CPT/HCPCS: 1040M; 99282

== ENCOUNTER 2019-04-07 20:28 | Emergency (ER) | payer BC ==
[2019-04-07 20:51] LABS: BILIRUBIN,URINE NEGATIVE (NEGATIVE); GLUCOSE, URINE (UA) NEGATIVE (NEGATIVE); KETONES,URINE (UA) NEGATIVE (NEGATIVE); LEUKOCYTE ESTERASE, URINE NEGATIVE (NEGATIVE); NITRITE,URINE NEGATIVE (NEGATIVE); OCCULT BLOOD,URINE SMALL (NEGATIVE); PROTEIN,URINE TRACE mg/dL (NEGATIVE); UROBILINOGEN,URINE 0.2 (NORMAL) E.U./dL (NORMAL)
[2019-04-07 20:53] LABS: CLARITY,URINE HAZY (CLEAR); HCG UR QUAL NEGATIVE
[2019-04-07 21:09] LABS: BACTERIA,URINE Rare /HPF (None Seen); SQUAMOUS EPITHELIAL CELL,UR RARE Squamous (<= Few)
[2019-04-07] MEDS ORDERED: LIDOCAINE 1% 2 ML VIAL MC ONE (21:13)
[2019-04-07] MEDS ORDERED: cefTRIAXone 1 GM VIAL IM STA (21:13)
--- NOTE | 2019-04-07 21:23 | ED Physician Documentation ---
PD HPI FEMALE - Stated complaint Stated Complaint: ABD PX/NAUSEA - Chief complaint Chief Complaint: Abd Pain - History obtained from History obtained from: Patient - History of Present Illness Timing - onset: How many days ago (3) Timing - duration: Days (3) Timing - details: Gradual onset, Still present Associated symptoms: Back pain, Dysuria, Urinary frequency Contributing factors: IUD Similar symptoms before: Diagnosis (UTI and ) Recently seen: Emergency Dept - Additional information Additional information: 33-year-old female with a recent history of urinary tract infection 1 month ago has developed symptoms again of urinary urgency frequency and dysuria with now bilateral flank pain for the past 3 days. She has not had her period in over a month she is worried about the possibility of . On her last visit she had not been sexually active she does have a partner and they have since been active. She does have an IUD in place. She has had a prior where the urine test was negative and the quantitative was positive. She has some nausea she has not had vomiting and she has not had fever. Review of Systems Constitutional: reports: Fatigue. denies: Fever Eyes: denies: Decreased vision Ears: denies: Ear pain Nose: denies: Congestion Throat: denies: Sore throat Cardiac: denies: Chest pain / pressure, Palpitations Respiratory: denies: Dyspnea, Cough GI: reports: Nausea. denies: Abdominal Pain, Vomiting, Constipation, Diarrhea : reports: Dysuria, Frequency, Discharge Skin: denies: Rash Musculoskeletal: reports: Back pain. 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: None : None HEENT: None Psych: None Musculoskeletal: None Derm: None - Past Surgical History Past Surgical History: Yes /MAINTENANCE FITTER: section - Present Medications Home Medications: Ambulatory Orders Medication Instructions Recorded Confirmed Nitrofurantoin Monohyd/M-Cryst 100 mg PO BID 7 Days capsule 03/09/19 [Macrobid 100 mg Capsule] metroNIDAZOLE 0.75% GEL 1 applic VG DAILY 5 Days tube 03/09/19 Sulfamethoxazole/Trimethoprim 1 each PO BID #14 tablet 04/07/19 [Sulfamethoxazole-Tmp Ds Tablet] - Allergies Allergies/Adverse Reactions: Allergies Allergy/AdvReac Type Severity Reaction Status Date / Time bee venom protein (honey bee) Allergy Anaphylaxis Verified 10/21/18 11:58 Penicillins Allergy Unknown Verified 10/21/18 11:58 - Social History Does the pt smoke?: No Smoking Status: Never smoker Does the pt drink ETOH?: No Does the pt have substance abuse?: No - Immunizations Immunizations are current?: Yes Immunizations: TDAP >10years/unknown - POLST Patient has POLST: No PD ED PE NORMAL - Vitals Vital signs reviewed: Yes (hypertensive) - General General: Alert and oriented X 3, No acute distress, Well developed/nourished - HEENT HEENT: Atraumatic, PERRL, EOMI - Neck Neck: Supple, no meningeal sign, No bony TTP - Cardiac Cardiac: RRR, No murmur - Respiratory Respiratory: No respiratory distress, Clear bilaterally - Abdomen Abdomen: Normal bowel sounds, Soft, Non tender, Non distended, No organomegaly - Back Back: No spinal TTP, Other (bilateral CVA tenderness is mild suprapubic tenderness is mild ) - Derm Derm: Normal color, Warm and dry, No rash - Extremities Extremities: No deformity, Normal ROM s pain, No edema, No calf tenderness / cord - Neuro Neuro: Alert and oriented X 3, body team member 2-12 intact, No motor deficit, No sensory deficit, Normal speech Eye Opening: Spontaneous Motor: Obeys Commands Verbal: Oriented GCS Score: 15 - Psych Psych: Normal mood, Normal affect Results - Vitals Vitals: Vital Signs - 24 hr 04/07/19 20:30 Temperature 36.5 C Heart Rate 74 Respiratory 14 Rate Blood Pressure 145/87 H O2 Saturation 100 Oxygen O2 Source Room air - Labs Labs: Laboratory Tests 04/07/19 04/07/19 04/07/19 20:38 20:38 21:30 HCG, Quant < 0.60 Urine Color LT. YELLOW Urine Clarity HAZY Urine pH 7.0 Ur Specific [place] 1.015 1.015 Urine Protein TRACE Urine Glucose (UA) NEGATIVE Urine Ketones NEGATIVE Urine Occult Blood SMALL H Urine Nitrite NEGATIVE Urine Bilirubin NEGATIVE Urine Urobilinogen 0.2 (NORMAL) Ur Leukocyte Esterase NEGATIVE Urine RBC 6-10 H Urine WBC 6-10 H Ur Squamous Epith Cells RARE Squamous Urine Bacteria Rare Ur Microscopic Review INDICATED Urine Culture Comments INDICATED Urine HCG, Qual NEGATIVE Procedures - Bedside sono Bedside sono by EMP: With use of bedside ultrasound both kidneys are imaged they are sonographically tender and without hydronephrosis. There is no caroline-nephric fluid. The suprapubic area is imaged the uterus is present with the Mirena in place and there is no distended bladder. There is no free fluid in the pelvis. PD MEDICAL DECISION MAKING - ED course Complexity details: reviewed old records, reviewed results, re-evaluated patient, considered differential, d/w patient ED course: 33-year-old female who is been treated for bacterial vaginosis and urinary tract infection about 1 month ago has Mirena in place and she is concerned about the possibility of because she has developed some nausea and flank pain. On examination she does have flank tenderness she does have some white cells some bacteria and some blood in the urine. Consistent with infection. She is administered Rocephin 1 g IM for treatment of pyelonephritis and I have encouraged the patient to follow-up with her primary care doctor for further evaluation of her discharge as this is been treated for BV without success. Departure - Departure Disposition: 01 Home, Self Care Clinical Impression: Pyelonephritis Condition: Stable Instructions: ED Kidney Infec Female Follow-Up: Fabrizio Bynum PA-C [Primary Care Provider] - Prescriptions: Sulfamethoxazole/Trimethoprim [Sulfamethoxazole-Tmp Ds Tablet] 1 each PO BID #14 tablet Forms: Activity restrictions
[2019-04-07 22:18] VITALS: BP 140/88
== END 2019-04-07 22:16 | disposition home or self-care (01) ==
LOC: ED 20:28
DX: N12 Tubulo-interstitial nephritis, not specified as acute or chronic (principal); Z97.5 Presence of (intrauterine) contraceptive device
CPT/HCPCS: 36415; 81001; 81003; 81025; 84702; 87077; 87086; 87181; 96372; 99283; 99284

== ENCOUNTER 2019-06-17 08:57 | Emergency (ER) | payer BC ==
[2019-06-17] MEDS ORDERED: ONDANSETRON ODT 4 MG TABLET TL STA (09:18)
--- NOTE | 2019-06-17 09:20 | ED Physician Documentation ---
History of Present Illness - Stated complaint Stated Complaint: VOMITING - Chief complaint Chief Complaint: Abd Pain - Additonal information Additional information: This is a 33-year-old female presents with urinary urgency, frequency, vomiting, and breast tenderness. Symptoms have been ongoing for several days, patient denies fever. She does have urinary urgency and mild dysuria. She does have a history of UTIs is feels similar to that. She has an IUD, she is sexually active, she had a negative test at her primary care in the last week, but she would like to know if she is today. She denies any chest pain or shortness of breath. She has some mild bilateral breast tenderness, no redness or lesions. 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: None : None HEENT: None Psych: None Musculoskeletal: None Derm: None Other Past Medical History: frequent UTI's - Past Surgical History Past Surgical History: Yes /TELEVISION SCHEDULE COORDINATOR: section - Present Medications Home Medications: Ambulatory Orders Medication Instructions Recorded Confirmed Nitrofurantoin Monohyd/M-Cryst 100 mg PO BID 7 Days capsule 03/09/19 [Macrobid 100 mg Capsule] metroNIDAZOLE 0.75% GEL 1 applic VG DAILY 5 Days tube 03/09/19 Sulfamethoxazole/Trimethoprim 1 each PO BID #14 tablet 04/07/19 [Sulfamethoxazole-Tmp Ds Tablet] - Allergies Allergies/Adverse Reactions: Allergies Allergy/AdvReac Type Severity Reaction Status Date / Time bee venom protein (honey bee) Allergy Anaphylaxis Verified 06/17/19 09:12 Penicillins Allergy Unknown Verified 06/17/19 09:12 - Social History Does the pt smoke?: No Smoking Status: Never smoker Does the pt drink ETOH?: No Does the pt have substance abuse?: No - Immunizations Immunizations are current?: Yes Immunizations: TDAP >10years/unknown - POLST Patient has POLST: No PD ED PE NORMAL - Vitals Vital signs reviewed: Yes - General General: Alert and oriented X 3, No acute distress - HEENT HEENT: PERRL - Neck Neck: Supple, no meningeal sign - Cardiac Cardiac: RRR - Respiratory Respiratory: Clear bilaterally - Abdomen Abdomen: Soft, Non distended, Other (Very mild diffuse tenderness, no focal right lower quadrant or right upper quadrant tenderness) - Derm Derm: Warm and dry - Extremities Extremities: No deformity - Neuro Neuro: Alert and oriented X 3 - Psych Psych: Normal mood, Normal affect Results - Vitals Vitals: Vital Signs - 24 hr 06/17/19 06/17/19 06/17/19 09:12 10:03 10:59 Temperature 36.5 C 36.6 C 36.7 C Heart Rate 81 73 63 Respiratory 18 16 16 Rate Blood Pressure 143/97 H 127/90 H 121/89 H O2 Saturation 100 100 100 Oxygen O2 Source Room air - Labs Labs: Laboratory Tests 06/17/19 06/17/19 06/17/19 09:25 09:29 09:29 WBC 10.0 RBC 4.73 Hgb 14.2 Hct 42.8 MCV 90.5 MCH 30.0 MCHC 33.2 RDW 12.6 Plt Count 304 MPV 9.1 Neut # (Auto) 6.3 Lymph # (Auto) 2.2 Bath # (Auto) 0.9 Eos # (Auto) 0.4 Baso # (Auto) 0.1 Absolute Nucleated RBC 0.00 Nucleated RBC % 0.0 Sodium 138 Potassium 3.5 Chloride 105 Carbon Dioxide 25 Anion Gap 8.0 BUN 14 Creatinine 0.5 Estimated GFR (MDRD) 141 Glucose 99 Calcium 8.9 Total Bilirubin 1.4 H AST 16 ALT 20 Alkaline Phosphatase 53 Total Protein 7.1 Albumin 4.3 Globulin 2.8 Albumin/Globulin Ratio 1.5 Lipase 55 H Serum HCG, Qual Urine Color YELLOW Urine Clarity CLEAR Urine pH 7.0 Ur Specific [place] 1.020 Urine Protein NEGATIVE Urine Glucose (UA) NEGATIVE Urine Ketones NEGATIVE Urine Occult Blood NEGATIVE Urine Nitrite NEGATIVE Urine Bilirubin NEGATIVE Urine Urobilinogen 0.2 (NORMAL) Ur Leukocyte Esterase NEGATIVE Ur Microscopic Review NOT INDICATED Urine Culture Comments NOT INDICATED 06/17/19 09:29 WBC RBC Hgb Hct MCV MCH MCHC RDW Plt Count MPV Neut # (Auto) Lymph # (Auto) Bath # (Auto) Eos # (Auto) Baso # (Auto) Absolute Nucleated RBC Nucleated RBC % Sodium Potassium Chloride Carbon Dioxide Anion Gap BUN Creatinine Estimated GFR (MDRD) Glucose Calcium Total Bilirubin AST ALT Alkaline Phosphatase Total Protein Albumin Globulin Albumin/Globulin Ratio Lipase Serum HCG, Qual NEGATIVE Urine Color Urine Clarity Urine pH Ur Specific [place] Urine Protein Urine Glucose (UA) Urine Ketones Urine Occult Blood Urine Nitrite Urine Bilirubin Urine Urobilinogen Ur Leukocyte Esterase Ur Microscopic Review Urine Culture Comments PD MEDICAL DECISION MAKING - ED course Complexity details: considered differential (UTI, pregancy, gastroenteritis, gastritis, viral syndrome, electrolyte abnormality) ED course: Patient is well-appearing on exam with a benign abdominal exam, and unremarkable vital signs. She was given zofran and a fluid bolus. UA is negative for infection, HCG negative, labs unrevealing other than a very slightly elevated lipase. She has no RUQ /LUQ abdominal tenderness on serial exams, is tolerating PO here, and clinically does not appear to have a significant pancreatitis. She has had a mildly elevated lipase in the past as well. She has no chest pain. No pelvic symptoms. I discussed the results with the patient, and given that she is feeling improved and tolerating PO I think she is stable for outpatient follow up. I discussed return precuations and PCP follow up, and patient was discharged home with a prescription for zofran. Departure - Departure Disposition: 01 Home, Self Care Clinical Impression: Nausea Condition: Good Follow-Up: Fabrizio Bynum PA-C [Primary Care Provider] - Comments: Your test was negative today, and your urine did not show signs of infection. Your labs are reassuring. You can take the Zofran for nausea, Tylenol ibuprofen for discomfort. Please follow-up with your primary care provider on your symptoms, return to the emergency department if you are having worsening symptoms. Discharge Date/Time: 06/17/19 11:04
[2019-06-17 09:37] LABS: BASOPHILS # (AUTO) 0.1 10^3/uL (0.0-0.1); BASOPHILS % (AUTO) 0.6 %; EOSINOPHILS # (AUTO) 0.4 10^3/uL (0.0-0.7); EOSINOPHILS % (AUTO) 4.2 %; HGB - HEMOGLOBIN 14.2 g/dL (12.0-16.0); LYMPHOCYTES # (AUTO) 2.2 10^3/uL (1.5-3.5); LYMPHOCYTES % (AUTO) 22.5 %; MEAN CORPUSCULAR HGB CONC 33.2 g/dL (32.0-36.0); MEAN CORPUSCULAR VOLUME 90.5 fL (81.0-99.0); MEAN PLATELET VOLUME 9.1 fL (7.9-10.8); MONOCYTES # (AUTO) 0.9 10^3/uL (0.0-1.0); MONOCYTES % (AUTO) 9.2 %; NEUTROPHILS # (AUTO) 6.3 10^3/uL (1.5-6.6); NEUTROPHILS % (AUTO) 62.9 %; PLT - PLATELET COUNT 304 10^3/uL (130-450); RED BLOOD COUNT 4.73 10^6/uL (4.20-5.40); RED CELL DISTRIBUTION WIDTH 12.6 % (12.0-15.0)
[2019-06-17 09:42] LABS: BILIRUBIN,URINE NEGATIVE (NEGATIVE); GLUCOSE, URINE (UA) NEGATIVE (NEGATIVE); KETONES,URINE (UA) NEGATIVE (NEGATIVE); LEUKOCYTE ESTERASE, URINE NEGATIVE (NEGATIVE); NITRITE,URINE NEGATIVE (NEGATIVE); OCCULT BLOOD,URINE NEGATIVE (NEGATIVE); PROTEIN,URINE NEGATIVE (NEGATIVE); UROBILINOGEN,URINE 0.2 (NORMAL) E.U./dL (NORMAL)
[2019-06-17 09:44] LABS: CLARITY,URINE CLEAR (CLEAR)
[2019-06-17 09:53] LABS: ALBUMIN 4.3 g/dL (3.2-5.5); ALBUMIN/GLOBULIN RATIO 1.5 (1.0-2.2); BILIRUBIN,TOTAL 1.4 mg/dL (0.2-1.0); CALCIUM 8.9 mg/dL (8.5-10.3); CREATININE 0.5 mg/dL (0.4-1.0); TOTAL PROTEIN 7.1 g/dL (6.7-8.2)
[2019-06-17 10:03] LABS: HCG,QUALITATIVE BLOOD NEGATIVE
[2019-06-17 11:01] VITALS: BP 121/89
== END 2019-06-17 11:04 | disposition home or self-care (01) ==
LOC: ED 08:57
DX: R11.0 Nausea (principal)
CPT/HCPCS: 36415; 80053; 81003; 83690; 84703; 85025; 99282; 99283; Q0162; 81001; 87086

== ENCOUNTER 2019-06-25 08:58 | Outpatient (CLI) | payer BC ==
--- NOTE | 2019-06-25 13:05 | Ultrasound Report ---
Reason: IUD CHECK Procedure Date: 06/25/2019 Accession Number: [id number] / [id number] Procedure: US - Pelvic w/Transvaginal CPT Code: Final Report FULL RESULT: EXAM: PELVIC ULTRASOUND EXAM DATE: 06/25/2019 12:43 PM. CLINICAL HISTORY: Unable to locate IUD strings. Abdominal pelvic pain for 2 weeks. COMPARISON: None. TECHNIQUE: Realtime transabdominal pelvic scan performed to identify the uterus and adnexa and as an overview of other pelvic structures, followed by transvaginal scan to provide greater detail of the uterus and adnexa, with static image documentation. FINDINGS: Uterus: 8.4 x 3.8 x 5.5 cm, volume 92 cc. Anteverted position. Normal in overall size and echotexture. An anterior lower uterine segment scar contains a small fluid collection. Masses: None. Endometrium: 4 mm. An IUD is in satisfactory position in the distal endometrial canal. Strings visualized in lower uterine segment canal. No masses or thickening evident. Cervix: Nabothian cysts present. Right Ovary: 3.2 x 1.9 x 2.3 cm, volume 7.1 cc. A small complex cystic lesion containing non-vascular echogenic components measures 1.5 x 1.2 x 1.1 cm. No evidence for torsion. Left Ovary: 2.3 x 1.3 x 2.4 cm, volume 3.8 cc. Normal echotexture and blood flow. Free Fluid: None. Other: None. IMPRESSION: 1. IUD in satisfactory position, with strings in lower uterine segment canal. 2. 1.5 cm hemorrhagic right ovarian cyst or follicle. RADIA
== END 2019-06-25 08:59 | disposition home or self-care (01) ==
LOC: DI 08:58
PROVIDERS: ATTEND Physician Assistant Medical
DX: Z30.431 Encounter for routine checking of intrauterine contraceptive device (principal)
CPT/HCPCS: 76830; 76856

== ENCOUNTER 2019-12-29 13:11 | Emergency (ER) | payer BC ==
[2019-12-29] MEDS ORDERED: ONDANSETRON 4 MG/2 ML VIAL IVP STA (13:55)
[2019-12-29 13:56] LABS: BILIRUBIN,URINE NEGATIVE (NEGATIVE); CLARITY,URINE CLEAR (CLEAR); KETONES,URINE (UA) NEGATIVE (NEGATIVE); LEUKOCYTE ESTERASE, URINE SMALL (NEGATIVE); NITRITE,URINE NEGATIVE (NEGATIVE); OCCULT BLOOD,URINE NEGATIVE (NEGATIVE); PH,URINE 8.5 PH (5.0-7.5); PROTEIN,URINE NEGATIVE (NEGATIVE); UROBILINOGEN,URINE 0.2 (NORMAL) E.U./dL (NORMAL)
--- NOTE | 2019-12-29 13:56 | ED Physician Documentation ---
PD HPI ABD PAIN - Stated complaint Stated Complaint: ABD PX - Chief complaint Chief Complaint: Abd Pain - History obtained from History obtained from: Patient - History of Present Illness Timing - onset: Other (34-year-old woman who is currently midcycle presents with lower abdominal pain that is been constant for the last 2 days. It is pelvic pain, nonradiating. There is mild vaginal discharge with it, no bleeding. She is nauseous and her breasts are tender. There is a possibility of . No history of abdominal surgeries. Decreased bowel movements but she has not been eating much because of the nausea. 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: None : None HEENT: None Psych: None Musculoskeletal: None Derm: None - Past Surgical History Past Surgical History: Yes /NURSING HOME ASSISTANT ADMINISTRATOR: section - Present Medications Home Medications: Ambulatory Orders Medication Instructions Recorded Confirmed Nitrofurantoin Monohyd/M-Cryst 100 mg PO BID 7 Days capsule 03/09/19 [Macrobid 100 mg Capsule] metroNIDAZOLE 0.75% GEL 1 applic VG DAILY 5 Days tube 03/09/19 Sulfamethoxazole/Trimethoprim 1 each PO BID #14 tablet 04/07/19 [Sulfamethoxazole-Tmp Ds Tablet] Ibuprofen [Motrin] 800 mg PO Q8H PRN #30 tablet 12/29/19 Magnesium Citrate 295 ml PO ONCE #1 solution 12/29/19 Ondansetron Odt [Zofran] 4 mg TL Q6H PRN #10 tablet 12/29/19 - Allergies Allergies/Adverse Reactions: Allergies Allergy/AdvReac Type Severity Reaction Status Date / Time bee venom protein (honey bee) Allergy Anaphylaxis Verified 06/17/19 09:12 Penicillins Allergy Unknown Verified 06/17/19 09:12 - Social History Does the pt smoke?: No Smoking Status: Never smoker Does the pt drink ETOH?: No Does the pt have substance abuse?: No - Family History Family history: reports: Non contributory - Immunizations Immunizations are current?: Yes Immunizations: TDAP >10years/unknown - POLST Patient has POLST: No PD ED PE NORMAL - Vitals Vital signs reviewed: Yes - General General: Alert and oriented X 3, No acute distress - Neck Neck: Supple, no meningeal sign, No bony TTP - Cardiac Cardiac: RRR, No murmur - Respiratory Respiratory: No respiratory distress, Clear bilaterally - Abdomen Abdomen: Normal bowel sounds, Soft, Other (Mild lower abdominal tenderness without surgical signs) - Back Back: No CVA TTP, No spinal TTP - Derm Derm: No rash - Extremities Extremities: No edema, No calf tenderness / cord - Neuro Neuro: Alert and oriented X 3, Normal speech Results - Vitals Vitals: Vital Signs - 24 hr 12/29/19 12/29/19 13:20 16:08 Temperature 36.2 C L Heart Rate 92 Respiratory 18 Rate Blood Pressure 142/82 H 118/85 H O2 Saturation 98 Oxygen O2 Source Room air - Labs Labs: Laboratory Tests 12/29/19 12/29/19 12/29/19 13:37 14:05 14:05 WBC 8.3 RBC 5.16 Hgb 15.3 Hct 45.3 MCV 87.8 MCH 29.7 MCHC 33.8 RDW 12.6 Plt Count 304 MPV 9.0 Neut # (Auto) 4.9 Lymph # (Auto) 1.9 [place] # (Auto) 1.0 Eos # (Auto) 0.4 Baso # (Auto) 0.0 Absolute Nucleated RBC 0.00 Nucleated RBC % 0.0 Sodium 138 Potassium 3.5 Chloride 105 Carbon Dioxide 25 Anion Gap 8.0 BUN 13 Creatinine 0.6 Estimated GFR (MDRD) 114 Glucose 95 Calcium 9.6 Total Bilirubin 3.2 H AST 22 ALT 25 Alkaline Phosphatase 65 Total Protein 7.5 Albumin 4.3 Globulin 3.2 Albumin/Globulin Ratio 1.3 Lipase 41 Urine Color YELLOW Urine Clarity CLEAR Urine pH 8.5 H Ur Specific [place] 1.015 Urine Protein NEGATIVE Urine Glucose (UA) NEGATIVE Urine Ketones NEGATIVE Urine Occult Blood NEGATIVE Urine Nitrite NEGATIVE Urine Bilirubin NEGATIVE Urine Urobilinogen 0.2 (NORMAL) Ur Leukocyte Esterase SMALL H Urine RBC 0-5 Urine WBC 4-5 Ur Squamous Epith Cells FEW Squamous Urine Bacteria Few Ur Microscopic Review INDICATED Urine Culture Comments INDICATED Urine HCG, Qual NEGATIVE - Rads (name of study) CT A/P Radiology: EMP read contemporaneously (Pulmonary nodules,Bibasilar likely benign , seen on prior study, no other inflammatory process noted but she does have a corpus luteum cyst on the right side) PD MEDICAL DECISION MAKING - ED course ED course: 84-year-old woman with pelvic pain, pretty benign examination, feeling better after Toradol and Zofran. Found to have a corpus luteum cyst likely reflecting mittelschmerz and also a large stool load to my eye. Departure - Departure Disposition: 01 Home, Self Care Clinical Impression: Mittelschmerz Constipation Qualifiers: Constipation type: unspecified constipation type Qualified Code(s): K59.00 - Constipation, unspecified Condition: Good Record reviewed to determine appropriate education?: Yes Instructions: ED Constipation, ED Pelvic Pain UKO, ED Mid Cycle Pain Mittelschmerz Follow-Up: [facility] [Provider Group] Prescriptions: Ibuprofen [Motrin] 800 mg PO Q8H PRN #30 tablet PRN Reason: PAIN &/OR FEVER Magnesium Citrate 295 ml PO ONCE #1 solution Ondansetron Odt [Zofran] 4 mg TL Q6H PRN #10 tablet PRN Reason: Nausea / Vomiting Comments: It appears today that you have a phenomenon known as mittelschmerz which is pain when you ovulate, also on my view of the CAT scan it appears that you are constipated. The anti-inflammatory should help with the pain and the magnesium citrate should help with the constipation. If not better in the next couple of days follow-up with the gynecology office listed on this form. Return for new or worsening symptoms. Discharge Date/Time: 12/29/19 16:08
[2019-12-29 13:57] LABS: GLUCOSE, URINE (UA) NEGATIVE (NEGATIVE); HCG UR QUAL NEGATIVE
[2019-12-29] MEDS ORDERED: KETOROLAC 30 MG/ML VIAL IVP STA (13:58)
[2019-12-29 13:59] LABS: RBC,URINE 0-5 /HPF (0-5)
[2019-12-29 14:00] LABS: BACTERIA,URINE Few /HPF (None Seen); SQUAMOUS EPITHELIAL CELL,UR FEW Squamous (<= Few)
[2019-12-29] MEDS ORDERED: IOVERSOL 320 100 ML VIAL IVP ONE ×2 (14:08→14:48)
[2019-12-29 14:09] LABS: BASOPHILS % (AUTO) 0.4 %; EOSINOPHILS # (AUTO) 0.4 10^3/uL (0.0-0.7); EOSINOPHILS % (AUTO) 5.1 %; HGB - HEMOGLOBIN 15.3 g/dL (12.0-16.0); LYMPHOCYTES # (AUTO) 1.9 10^3/uL (1.5-3.5); LYMPHOCYTES % (AUTO) 22.9 %; MEAN CORPUSCULAR HEMOGLOBIN 29.7 pg (27.0-31.0); MEAN CORPUSCULAR HGB CONC 33.8 g/dL (32.0-36.0); MEAN CORPUSCULAR VOLUME 87.8 fL (81.0-99.0); MONOCYTES % (AUTO) 12.3 %; NEUTROPHILS # (AUTO) 4.9 10^3/uL (1.5-6.6); NEUTROPHILS % (AUTO) 58.9 %; PLT - PLATELET COUNT 304 10^3/uL (130-450); RED BLOOD COUNT 5.16 10^6/uL (4.20-5.40); RED CELL DISTRIBUTION WIDTH 12.6 % (12.0-15.0); WHITE BLOOD COUNT 8.3 x10^3/uL (4.8-10.8)
[2019-12-29 14:23] LABS: ALBUMIN 4.3 g/dL (3.2-5.5); ALBUMIN/GLOBULIN RATIO 1.3 (1.0-2.2); BILIRUBIN,TOTAL 3.2 mg/dL (0.2-1.0); CALCIUM 9.6 mg/dL (8.5-10.3); CREATININE 0.6 mg/dL (0.4-1.0); TOTAL PROTEIN 7.5 g/dL (6.7-8.2)
--- NOTE | 2019-12-29 15:19 | CT Report ---
Reason: IV only, low abd pain Procedure Date: 12/29/2019 Accession Number: [id number] / [id number] Procedure: CT - Abdomen/Pelvis W CPT Code: Final Report FULL RESULT: EXAM: CT ABDOMEN AND PELVIS EXAM DATE: 12/29/2019 02:47 PM. CLINICAL HISTORY: Lower abdominal pain. COMPARISONS: Pelvic ultrasound from 06/25/2019. CTA chest from 09/28/2016. TECHNIQUE: Routine helical CT imaging was performed through the abdomen and pelvis. IV contrast: 90 cc Optiray 320. Enteric contrast: No. Reconstructions: Coronal and sagittal. In accordance with CT protocol optimization, one or more of the following dose reduction techniques were utilized for this exam: automated exposure control, adjustment of mA and/or KV based on patient size, or use of iterative reconstructive technique. FINDINGS: Lung Bases: There are 3 mm nodules in the lingula and right lower lobe (series 3, image 1), which are not significantly changed. A 2 mm nodule in the posterior basilar segment of the right lower lobe (series 3, image 9) is also not significantly changed. A 2 mm nodule in the lateral basilar segment of the left lower lobe (series 3, image 5) is not definitely seen on the prior examination; however, the prior examination was limited by respiratory motion artifact. Liver: Unremarkable. No focal lesions are demonstrated. Gallbladder/Bile Ducts: Unremarkable. Spleen: Within normal limits. Pancreas: Unremarkable. Adrenal Glands: No nodules. Kidneys: Relatively symmetric in size and enhancement. No focal lesions or hydronephrosis. Peritoneal Cavity/Bowel: No evidence of bowel obstruction or inflammation. Appendix is within normal limits. Pelvic Organs: Urinary bladder is decompressed. Uterus is anteverted. Intrauterine device is present and appears appropriately positioned. Bilateral adnexal structures are unremarkable by noncontrast CT. A right ovarian corpus luteum is present (series 3, image 64). Small amount of low attenuation pelvic free fluid is present, most likely physiologic. No pelvic adenopathy or free fluid. Vasculature: No abdominal aortic aneurysm. Bones: There is bilateral L5 spondylolysis with approximately 5 mm, grade 1 anterolisthesis at L5-S1. Moderate degenerative disk disease present at L5-S1. Other: None. IMPRESSION: 1. No evidence of acute infectious or inflammatory process in the abdomen or pelvis. 2. Intrauterine device appears appropriately positioned. 3. Several subcentimeter pulmonary nodules demonstrated in the lung bases. Majority have not significantly changed. One in the left lower lobe was not definitely seen previously; however, evaluation of the pulmonary parenchyma was limited on the prior examination due to respiratory motion. Given the patient's young age, this is likely to represent a benign nodule and probably does not warrant follow-up. RADIA
[2019-12-29 16:09] VITALS: BP 118/85
== END 2019-12-29 16:08 | disposition home or self-care (01) ==
LOC: ED 13:11
DX: N94.0 Mittelschmerz (principal); N83.11 Corpus luteum cyst of right ovary; K59.00 Constipation, unspecified; Z97.5 Presence of (intrauterine) contraceptive device; R91.8 Other nonspecific abnormal finding of lung field; R11.0 Nausea
CPT/HCPCS: 36415; 74177; 80053; 81001; 81025; 83690; 85025; 87086; 87181; 96374; 96375; 99284; Q9967; 81003

== ENCOUNTER 2019-12-31 13:00 | Outpatient (CLI) | payer BC ==
[2019-12-31 20:48] LABS: CANDIDA GROUP DNA NEGATIVE (NEGATIVE); CANDIDA KRUSEI DNA NEGATIVE (NEGATIVE); TRICHOMONAS VAGINALIS DNA NEGATIVE (NEGATIVE)
[2019-12-31 21:35] LABS: TRICHOMONAS VAGINALIS DNA NEGATIVE (NEGATIVE)
== END 2019-12-31 23:59 | disposition home or self-care (01) ==
LOC: LAB.R 13:00
PROVIDERS: ATTEND Advanced Practice Midwife
DX: Z30.431 Encounter for routine checking of intrauterine contraceptive device (principal); R10.2 Pelvic and perineal pain
CPT/HCPCS: 87491; 87591; 87661; 87801

== ENCOUNTER 2020-04-22 09:34 | Outpatient (CLI) | payer BC ==
--- NOTE | 2020-04-22 16:35 | XRAY Report ---
PROCEDURE: Foot 3 View LT INDICATIONS: LEFT 5TH TOE FRACTURE TECHNIQUE: 3 views of the foot were acquired. COMPARISON: 03/23/2020 FINDINGS: Bones: Redemonstration of previously described nondisplaced fracture involving the middle third of th e left fifth toe proximal phalanx. Stable alignment. Fracture line remains conspicuous. No significan t periosteal reaction or callus formation. Remainder of the visualized osseous structures appear inta ct. No suspicious bony lesions. Soft tissues: No tibiotalar joint effusion. Achilles tendon appears normal. IMPRESSION: Stable radiographic appearance and alignment of nondisplaced left fifth toe proximal phalanx fracture . Reviewed by: Otilio Mukherjee MD on 04/22/2020 4:34 PM PDT Approved by: Otilio Mukherjee MD on 04/22/2020 4:34 PM PDT Station ID: [id number]
== END 2020-04-22 09:35 | disposition home or self-care (01) ==
LOC: DI.WCP 09:34
PROVIDERS: ATTEND Family Medicine
DX: S92.52 Fracture of middle phalanx of lesser toe(s) (principal)

== ENCOUNTER 2020-05-26 08:37 | Outpatient (CLI) | payer BC ==
--- NOTE | 2020-05-26 13:28 | XRAY Report ---
PROCEDURE: Toe(s) LT INDICATIONS: NONDISPLACED FX OF MIDDLE PHALANX OF LEFT LESSER TOE TECHNIQUE: 3 views of the the toe(s) acquired. COMPARISON: X-ray foot 03/23/2020, 04/22/2020 FINDINGS: Bones: Continued interval healing with stable alignment of the fifth proximal phalanx fracture. No harrison spicious bony lesions. Soft tissues: No suspicious soft tissue densities. IMPRESSION: Healing fifth proximal phalanx fracture with stable alignment. Reviewed by: Allie Bang MD on 05/26/2020 1:26 PM PDT Approved by: Allie Bang MD on 05/26/2020 1:26 PM PDT Station ID: [id number]
== END 2020-05-26 08:38 | disposition home or self-care (01) ==
LOC: DI.WCP 08:37
PROVIDERS: ATTEND Physician Assistant
DX: S92.525A Nondisplaced fracture of middle phalanx of left lesser toe(s), initial encounter for closed fracture (principal)
CPT/HCPCS: 73660

== ENCOUNTER 2020-08-13 16:14 | Outpatient (CLI) | payer BC | END 2020-08-13 16:15 | disposition home or self-care (01) | LOC: COV 16:14 | PROVIDERS: ATTEND Obstetrics & Gynecology | DX: Z01.812 Encounter for preprocedural laboratory examination (principal); Z20.828 Contact with and (suspected) exposure to other viral communicable diseases ==

== ENCOUNTER 2020-08-18 10:38 | Outpatient (CLI) | payer BC ==
[2020-08-18 10:53] LABS: BASOPHILS # (AUTO) 0.1 10^3/uL (0.0-0.1); BASOPHILS % (AUTO) 0.8 %; EOSINOPHILS # (AUTO) 0.5 10^3/uL (0.0-0.7); EOSINOPHILS % (AUTO) 5.6 %; HGB - HEMOGLOBIN 15.2 g/dL (12.0-16.0); LYMPHOCYTES # (AUTO) 2.6 10^3/uL (1.5-3.5); MEAN CORPUSCULAR HEMOGLOBIN 29.5 pg (27.0-31.0); MEAN CORPUSCULAR HGB CONC 33.4 g/dL (32.0-36.0); MEAN CORPUSCULAR VOLUME 88.2 fL (81.0-99.0); MEAN PLATELET VOLUME 9.1 fL (7.9-10.8); MONOCYTES # (AUTO) 0.9 10^3/uL (0.0-1.0); MONOCYTES % (AUTO) 9.7 %; NEUTROPHILS # (AUTO) 5.2 10^3/uL (1.5-6.6); NEUTROPHILS % (AUTO) 55.6 %; PLT - PLATELET COUNT 326 10^3/uL (130-450); RED BLOOD COUNT 5.16 10^6/uL (4.20-5.40); RED CELL DISTRIBUTION WIDTH 12.7 % (12.0-15.0); WHITE BLOOD COUNT 9.3 x10^3/uL (4.8-10.8)
[2020-08-18 10:58] LABS: HCG UR QUAL NEGATIVE
== END 2020-08-18 10:39 | disposition home or self-care (01) ==
LOC: LAB 10:38
PROVIDERS: ATTEND Obstetrics & Gynecology
DX: Z01.812 Encounter for preprocedural laboratory examination (principal)
CPT/HCPCS: 36415; 81025; 85025; 86850; 86900; 86901

== ENCOUNTER 2020-08-20 09:10 | Day surgery (SDC) | payer BC ==
[2020-08-20] MEDS ORDERED: LACTATED RINGERS 1,000 ML IV ONE ×2 (09:21→13:20)
[2020-08-20] MEDS ORDERED: CELECOXIB 100 MG CAPSULE PO ONE (09:35)
[2020-08-20] MEDS ORDERED: GABAPENTIN 400 MG CAPSULE ONE (09:35)
[2020-08-20] MEDS ORDERED: ACETAMINOPHEN 1,000 MG/100 ML 100 ML IV ONE (09:36)
[2020-08-20 10:01] LABS: HCG UR QUAL NEGATIVE
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
--- NOTE | 2020-08-20 10:10 | OPERATIVE REPORT ---
Operative Report - General Procedure Date: 08/20/20 Planned Procedure: Removal of Mirena IUD Laparascopic salpingectomy Pre-Op Diagnosis: Retained Mirena IUD, strings not accessible, desires sterilization Procedure Performed: Removal of Mirena IUD Laparoscopic salpingectomy Post Op Diagnosis: Same - Procedure Note Primary Surgeon: Scarlett Cadena MD Secondary Surgeon: Kady Hurtado MD Anesthesia Provider: Sophie Correia CRNA Anesthesia Technique: General ET tube Pathology: Bilateral fallopian tubes, sent as one specimen IV Fluids (mL): 1,000 Estimated Blood Loss (mL): 10 Urine Output (mL): 0 (Voided prior to procedure) Indications: Patient is a 34 yo here for preop assessment for bilateral salpingectomy and Mirena IUD removal. Unremarkable past medical history other than allergy to PCN. Has had one SAB and a CSx1. Last pap was in 2019 and was wnl. No STIs. No Abnl pap smears. No dyspareunia. IUD for contraception. Desires permanent sterilization. Has had relatively heavy menses since placement of IUD in 2019. Desires removal and permanent sterilization. Findings: IUD strings not seen. IUD removed intact. Normal appearing uterus, tubes, and ovaries. Normal appendix. Unremarkable survey of the upper abdomen and cul de sac. Complications: None - Other Other Information/Narrative: Risks benefits and alternatives of the procedure were reviewed. Consent was again confirmed. Patient was brought to the operating room and underwent gen eral anesthesia. She was placed in dorsal lithotomy position with legs resting in yellowfin stirrups. SCDs were in place and activated. She was then prepped and draped in the usual sterile fashion. Surgical timeout was performed. Bimanual exam was performed. Sterile speculum was placed. The cervix was visualized. Uterus sounded to 8 cm. IUD hook was inserted and IUD was removed. It was examined and found ot be intact. The Eye-Qi uterine manipulator was placed. The base of the umbilicus was anesthetized with intradermal injection of 0.25% Marcaine. A 5 mm skin incision was made with a scalpel. A 5 mm blunt trocar was inserted under direct visualization using Visiport. Once the port was confirmed to be placed intraperitoneally, the abdomen was insufflated to 15 mmHg with CO2 gas Exploration of the abdomen and pelvis was confirmed that no injury was sustained with placement of the trocar. Two additional 5 mm ports were placed in the right and left lower quadrants, taking care to avoid the epigastric arteries, while under direct visualization via laparoscopic guidance. The abdomen was explored with the laparoscope, with findings as noted. The left fallopian tube was grasped and elevated at the fimbriated end. The underlying mesosalpinx was sealed and resected to the insertion point on the uterine cornua using the Ligasure device. The tube was then sealed and transect ed at the insertion point at the cornua. The tube was removed from the pelvis through the lateral port. The procedure was repeated on the right side. Good hemostasis was noted. The abdomen was partially desufflated. Pedicles were observed under decreased pressure and good hemostasis was again confirmed. Abdomen was then completely desufflated. All instruments were removed from the abdomen. Skin was closed with interrupted subcuticular stitches using 4-0 Monocryl. Dermabond was applied over the suture sites. The Humi manipulator was removed from the uterus. Again, good hemostasis was no arsh. The final sponge needle and instrument counts were correct at completion of the procedure patient was awakened taken to the postanesthesia care unit in stable condition. Dr. Hurtado assisted with suturing and retraction.
--- NOTE | 2020-08-20 11:05 | ANESTHESIA ---
Pre-Anesthesia VS, & Labs - Diagnosis desires sterilization, IUD removal - Procedure removal IUD, laparoscopic salphingectomy bilateral, possible hysteroscopy Vital Signs: Temp Pulse Resp BP Pulse Ox 37.1 C 84 16 114/89 H 99 08/20/20 09:31 08/20/20 09:31 08/20/20 09:31 08/20/20 09:31 08/20/20 09:31 Height: 5 ft 2 in Weight (kg): 56 kg Body Mass Index: 22.6 BMI Classification: Healthy weight - NPO >8 hours - Is Patient ?: No - Lab Results Current Lab Results: Laboratory Tests 08/20/20 09:46: POC Whole Bld Glucose 103 H Home Medications and Allergies Home Medications: Ambulatory Orders Albuterol Sulfate [Proair Hfa Inhaler] 1 - 2 puffs INH Q4H PRN 08/10/20 EPINEPHrine [Epinephrine] 0.3 mg IJ ONCE PRN 08/10/20 Albuterol Sulfate [Proair Hfa Inhaler] 1 - 2 puffs INH Q4H PRN 20 EPINEPHrine [Epinephrine] 0.3 mg IJ ONCE PRN 08/10/20 Allergies/Adverse Reactions: Allergies Allergy/AdvReac Type Severity Reaction Status Date / Time bee venom protein (honey bee) Allergy Anaphylaxis Verified 06/17/19 09:12 Penicillins Allergy Unknown Verified 06/17/19 09:12 Anes History & Medical History - Anesthetic History Anesthesia Complications: reports: No previous complications - Medical History Cardiovascular: reports: None Pulmonary: reports: Asthma, Pneumonia Gastrointestinal: reports: None Urinary: reports: None Musculoskeletal: reports: None Endocrine/Autoimmune: reports: None Blood Disorders: reports: None Skin: reports: None Smoking Status: Never smoker History of Cancer?: No - Surgical History Gynecologic: section Exam General: Alert Dental: WNL Neck Mobility: Normal Mallampati classification: II Thyromental Distance: 4-6 cm Respiratory: Lungs clear Cardiovascular: Regular rate Mental/Cognitive Status: Alert/Oriented X3 Plan Anesthesia Type: General Consent for Procedure(s) Verified and Reviewed: Yes Code Status: Attempt Resuscitation ASA classification: 2-Mild systemic disease Is this case an emergency?: No
[2020-08-20] MEDS ORDERED: fentaNYL 100 MCG/2 ML VIAL IVP PRN (11:07)
[2020-08-20] MEDS ORDERED: MORPHINE 2 MG/ML CARPUJECT IVP PRN (11:07)
[2020-08-20] MEDS ORDERED: ATROPINE ABBOJECT 1 MG/10 ML SYRINGE IVP PRN (11:07)
[2020-08-20] MEDS ORDERED: ONDANSETRON 4 MG/2 ML VIAL IVP PRN (11:07)
[2020-08-20] MEDS ORDERED: METOCLOPRAMIDE 10 MG/2 ML VIAL IVP PRN (11:07)
[2020-08-20] MEDS ORDERED: NALOXONE 0.4 MG/ML VIAL IVP PRN (11:07)
[2020-08-20] MEDS ORDERED: HYDROmorphone 0.5 MG/0.5 ML SYRINGE IVP PRN (11:07)
[2020-08-20] MEDS ORDERED: ePHEDrine 50 MG/ML VIAL IVP PRN (11:07)
[2020-08-20] MEDS ORDERED: BUPIVACAINE 0.25% PF 30 ML VIAL ONE (11:12)
[2020-08-20] MEDS ORDERED: LIDOCAINE 2%-EPI 1:100000 20 ML MDV ONE (11:12)
[2020-08-20] MEDS ORDERED: MIDAZOLAM 2 MG/2 ML VIAL ONE (11:24)
[2020-08-20] MEDS ORDERED: fentaNYL 100 MCG/2 ML VIAL ONE (11:24)
[2020-08-20] MEDS ORDERED: ROCURONIUM 50 MG/5 ML VIAL ONE (11:25)
[2020-08-20] MEDS ORDERED: LIDOCAINE-MPF 2% 5 ML VIAL ONE (11:25)
[2020-08-20] MEDS ORDERED: PROPOFOL 200 MG/20 ML VIAL IVP ONE (11:25)
[2020-08-20] MEDS ORDERED: LACTATED RINGERS 1,000 ML IV SCH (12:00)
[2020-08-20] MEDS ORDERED: DEXAMETHASONE 4 MG/ML VIAL ONE (12:31)
[2020-08-20] MEDS ORDERED: KETOROLAC 30 MG/ML VIAL ONE (12:31)
[2020-08-20] MEDS ORDERED: ONDANSETRON 4 MG/2 ML VIAL ONE (12:31)
[2020-08-20] MEDS ORDERED: BUPIVACAINE 0.25% PF 30 ML VIAL SUBQ ONE ×2 (12:44)
[2020-08-20] MEDS ORDERED: GLYCOPYRROLATE 1 MG/5 ML VIAL ONE (13:14)
[2020-08-20] MEDS ORDERED: NEOSTIGMINE 1 MG/1 ML 10 ML MDV ONE (13:14)
[2020-08-20] MEDS ORDERED: oxyCODONE 5 MG TABLET PO PRN (13:19)
[2020-08-20] MEDS ORDERED: oxyCODONE 5 MG TABLET ONE (14:21)
[2020-08-20 14:41] VITALS: BP 106/68
--- OUTSIDE RECORDS SUMMARY | 2020-08-26 01:04 | EXTERNAL MEDICAL SUMMARY RPT | Continuity of Care Document ---
:1985 Demographics Phone Unavailable Preferred Language Tanzanian Marital Status Unknown Hoahaoism Affiliation Unknown Race Unknown Ethnic Group Unknown Author Organization [facility] [address] [place] [address] Phone Care Team Providers Name Role Phone PA-C Unavailable Unavailable Holiday Unavailable Unavailable Gravatt Unavailable Unavailable Fletcher Unavailable Unavailable Problems date description facility 2016-09-28 22:57 DISEASE OF PERICARDIUM, [facility] UNSPECIFIED 2016-09-28 22:[address] 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 2016-10-29 21:54 ABNORMAL LEVELS OF OTHER SERUM [facility] ENZYMES 2017-03-13 20:10 ELEVATED BLOOD-PRESSURE [facility] READING, W/O DIAGNOSIS OF HTN 2017-03-13 20:[address] [facility] 2017-03-13 20:[address] 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, LIMBS AND MS SYS 2017-07-01 19:59 OTH VIRAL AGENTS THE CAUSE [facility] OF DISEASES CLASSD ELSWHR 2017-07-01 19:59 ACUTE PHARYNGITIS, UNSPECIFIED [facility] 2017-07-01 19:59 ACUTE UPPER RESPIRATORY [facility] INFECTION, UNSPECIFIED 2017-12-27 12:48 UNQUALIFIED VISUAL LOSS, BOTH [facility] EYES 2017-12-27 12:48 CHRONIC MAXILLARY SINUSITIS [facility] 2017-12-27 12:48 CHRONIC ETHMOIDAL SINUSITIS [facility] 2018-01-25 21:30 CHEST PAIN, UNSPECIFIED [facility] 2018-04-29 21:[address] [facility] 2018-10-16 19:19 FLU DUE TO UNIDENTIFIED [facility] INFLUENZA VIRUS W OTH RESP MANIFEST 2018-10-16 19:[address] [facility] 2018-10-16 19:[address] [facility] 2018-10-16 19:19 PERSONAL HISTORY OF PNEUMONIA [facility] (RECURRENT) 2019-03-09 13:27 OTH BACTERIAL AGENTS THE [facility] CAUSE OF DISEASES CLASSD ELSWHR 2019-03-09 13:27 URINARY TRACT INFECTION, SITE [facility] NOT SPECIFIED 2019-03-09 13:[address] [facility] 2019-03-09 13:27 LOWER [facility]BDOMINAL [facility], [facility] [place] UNSPECIFIED 2019-04-07 20:28 TUBULO-INTERSTITIAL NEPHRITIS, [facility] NOT SPCF ACUTE OR CHRONIC 2019-04-07 20:[address] [facility] 2019-04-07 20:28 PRESENCE OF (INTRAUTERINE) [facility] CONTRACEPTIVE DEVICE 2019-06-17 08:[address] [facility] 2019-06-17 08:57 URGENCY OF URINATION [facility] [place] 2019-06-25 08:58 ENCOUNTER FOR ROUTINE CHECKING [facility] OF INTRAUTERINE CONTRACEP DEV 2019-12-29 13:11 CONSTIPATION, UNSPECIFIED [facility] 2019-12-29 13:11 CORPUS LUTEUM CYST OF RIGHT [facility] OVARY 2019-12-29 13:[address] [facility] 2019-12-29 13:11 PELVIC AND PERINEAL PAIN [facility] 2019-12-[address] [facility] 2019-12-29 13:11 OTHER NONSPECIFIC ABNORMAL [facility] FINDING OF LUNG FIELD 2019-12-29 13:11 [facility] 2019-12-31 13:00 PELVIC AND PERINEAL PAIN [facility] 2019-12-31 13:00 ENCOUNTER FOR ROUTINE CHECKING [facility] OF INTRAUTERINE CONTRACEP DEV 2020-03-16 08:00 ENCNTR FOR GENERAL ADULT [facility] MEDICAL EXAM W/O ABNORMAL FINDINGS 2020-03-23 15:12 NONDISP FX OF PROXIMAL PHALANX [facility] OF LEFT LESSER TOE(S), IN 2020-04-22 09:34 NONDISP FX OF MIDDLE PHALANX OF [facility] LEFT LESSER TOE(S), 7THD 2020-05-26 08:37 NONDISP FX OF MIDDLE PHALANX OF [facility] LEFT LESSER TOE(S), IN 2020-06-03 00:00:00 [facility] [place] [facility] 2020-06-03 00:00:00 Tobacco use and exposure [facility] 2020-06-03 00:00:00 Exercise [facility] [place] [facility] 2020-06-03 00:00:00 [facility] sm[facility] [place] [facility] 2020-06-03 00:00:00 [facility] [place] [facility] 2020-06-03 00:00:00 Tobacco smoking status [facility] [place] [facility] 2020-06-11 00:00:00 Closed fracture of middle or [facility] proximal phalanx or phalanges of [place] [facility] hand 2020-06-11 00:00:00 Late effect of fracture of [facility] lower extremities [place] [facility] 2020-06-11 00:00:00 Nondisplaced [facility] proximal phalanx of left thumb, [place] [facility] initial encounter for closed fracture 2020-06-11 00:00:00 Displaced fracture of proximal [facility] phalanx of unspecified great [place] [facility] toe, sequela 2020-06-11 00:00:00 Nondisplaced [facility] proximal phalanx of left lesser [place] toe(s), initial encounter for closed fracture 2020-06-11 00:00:00 Closed fracture of proximal [facility] phalanx of lesser toe of left [place] [facility] foot 2020-06-11 00:00:00 Alcohol intake [facility] Prim denton Care [place] [facility] 2020-06-11 00:00:00 Closed fracture thumb proximal [facility] phalanx [place] [facility] 2020-06-11 00:00:00 Fracture of great toe [facility] P rimary Care [facility] 2020-06-11 00:00:00 Health-related behavior [facility] 2020-06-11 00:00:00 Tobacco use and exposure [facility] 2020-06-11 00:00:00 Exercise [facility] Prim denton Care [facility] 2020-06-11 00:00:00 Never smoker [facility] Prim denton Care [facility] 2020-06-11 00:00:00 Alcohol use [facility] Prim denton Care [facility] 2020-06-11 00:00:00 Tobacco smoking status NHIS [facility] [place] [facility] 2020-07-17 00:00:00 Alcohol intake [facility] Prim denton Care [facility] 2020-07-17 00:00:00 Health-related behavior [facility] [place] [facility] 2020-07-17 00:00:00 [facility]:00:00 Exercise [facility] Prim denton Care [place] [facility] 2020-07-17 00:00:00 Never smoker [facility] Prim denton Care [facility] 2020-07-17 00:00:00 [facility] [place] [facility] 2020-07-17 00:00:00 Tobacco smoking status NHIS L[facility] Primary Care [place] [facility] 2020-07-28 00:00:00 Preoperative examination, [facility] Primary Care unspecified [place] [facility] 2020-07-28 00:00:00 Encounter for other [facility] preprocedural examination [place] [facility] 2020-07-28 00:00:00 Alcohol [facility] [place] [facility] 2020-07-28 00:00:00 Special examination - general [facility] Primary Care [place] [facility] 2020-07-28 00:00:00 Health-related behavior [facility] Primary [facility] [place] [facility] 2020-07-28 00:00:00 Tobacco use and exposure [facility] Primary Care [place] [facility] 2020-07-28 00:00:00 Exercise [facility] [place] [facility] 2020-07-28 00:00:00 Never smoker [facility] [place] [facility] 2020-07-28 00:00:00 Alcohol use [facility] [place] [facility] 2020-07-28 00:00:00 Tobacco smoking status NHIS Lg rosario Primary Care [place] [facility] 2020-08-20 09:10 ENCOUNTER FOR STERILIZATION [facility] 2020-08-20 09:30 ENCOUNTER FOR STERILIZATION [facility] [place] Allergies date description facility DOXYCYCLINE [facility] [place] HYDROCODONE BITARTRATE [facility] ed[facility] [place] NSAIDS (NON-STEROIDAL ANTI-INFLAMMATORY DRUG) [facility] PROMETHAZINE HCL [facility] SULFA (SULFONAMIDE ANTIBIOTICS) [facility] NO KNOWN ALLERGIES [facility] [place] ADHESIVE \T\ TAPE [facility] ERYTHROMYCIN BASE [facility] INFLUENZA VACCINES [facility] NO KNOWN ENVIRONMENTAL ALLERGIES [facility]ICILLINS [facility] CAFFEINE [facility] COLT INHIBITORS [facility] AMOXICILLIN-POT CLAVULANATE [facility] [place] BEE VENOM PROTEIN (HONEY BEE) [facility] ETOMIDATE [facility] HYDROCODONE-ACETAMINOPHEN [facility] NIACIN [facility] PENICILLINS [facility] EGG [facility] MORPHINE [facility] CODEINE [facility] TRAZODONE [facility] QUETIAPINE [facility] HYDROCODONE-ACETAMINOPHEN [facility] AMOXICILLIN [facility] BUPROPION [facility] NICKEL [facility] OFLOXACIN [facility] BUPRENORPHINE HCL [facility] MORPHINE AND RELATED [facility] NO KNOWN ENVIRONMENTAL ALLERGIES [facility] AMOXICILLIN [facility] SULFAMETHOXAZOLE W/TRIMETHOPRIM [facility] (CO-TRIMOXAZOLE) NO KNOWN ALLERGIES [facility] Medications date description facility 2020-06-03 00:00:00 null [facility] Prim denton Care [place] [facility] 2020-06-03 00:00:00 null [facility] Prim [place] Care [place] [facility] Procedures date description facility 2020-06-03 00:00:00 First Vx - Ix admin via ID [facility] Primary Care or jet injects without [place] [facility] counseling by physician date description facility 2020-06-03 00:00:00 Fluarix Quadrivalent [facility] Pr imary Care Intramuscular Suspension [place] [facility] Prefilled Syringe 0.5 ML date description facility 2020-06-03 00:00:00 [facility] Prim [place] Care [place] [facility] Results test status date ordered by attending specimen barbara e null F 2020-08-13 [facility]01 Rosalinda Surinder 2019-08 16:15:00 11:10:00 facility observation status value reference units lab abnor mal line notes range code [facility] F NEGATIVE [facility] - Report scanned to Patient' s EMR. Testing performe d at [facility] test status date ordered by attending specimen barbara e null F 2020-08-18 [facility]01 Rosalinda Cadena 1-0 1-05 10:48:00 10:45:00 null F 2020-08-18 [facility]01 Rosalinda Cadena 2020-0 1-05 10:48:00 10:45:00 null F 2020-08-18 [facility]01 Rosalinda Cadena 2020-0 1-05 10:48:00 10:45:00 null F 2020-08-18 [facility]01 Rosalinda Cadena 1-0 1-05 10:48:00 10:45:00 null F 2020-08-18 [facility]01 Rosalinda Cadena 1-0 1-05 10:48:00 10:45:00 null F 2020-08-18 [facility]01 Rosalinda Cadena 1-0 1-05 10:48:00 10:45:00 null F 2020-08-18 [facility]01 Rosalinda Cadena 1-0 1-05 10:48:00 10:45:00 null F 2020-08-18 [facility]01 Rosalinda Cadena 1-0 1-05 10:48:00 10:45:00 null F 2020-08-18 [facility]01 Rosalinda Cadena 2020-0 1-05 10:48:00 10:45:00 null F 2020-08-18 [facility]01 Rosalinda Cadena 1-0 1-05 10:48:00 10:45:00 null F 2020-08-18 [facility]01 Rosalinda Cadena 1-0 1-05 10:48:00 10:45:00 null F 2020-08-18 [facility]01 Rosalinda Cadena 1-0 1-05 10:48:00 10:45:00 null F 2020-08-18 [facility]01 Rosalinda Cadena 1-0 1-05 10:48:00 10:45:00 null F 2020-08-18 [facility]01 Rosalinda Cadena 2021-0 1-05 10:48:00 10:45:00 null F 2020-08-18 [facility]01 Rosalinda Cadena 1-05 10:48:00 10:45:00 null F 2020-08-18 [facility]01 Rosalinda Cadena 1-05 10:48:00 10:45:00 null F 2020-08-18 [facility].01 Rosalinda Cadena 1-05 10:48:00 10:45:00 null F 2020-08-18 [facility].01 Rosalinda Cadena 1-05 10:48:00 10:45:00 facility observation status value reference units lab abnor mal line notes range code [facility] F 0.1 0.0-0.1 10 [facility] 3/ [facility] F 0.5 0.0-0.7 [address] [place] [address]/ [facility] F NEGATIVE unknown [facility] I NFORMATION Urine hC G: Non-preg nant females: Negative females: Positive In some honey es the leve l of hCG may be below th e sensitiv ity of the t est. Addition ally, a very d ilute urine specimen , may not cont ain represen tativ e levels of hCG. If pregnanc y is still suspecte d, follow u p testing on a first mo rning urine specimen or serum hC G testing is recommen ded. [facility] F 45.5 37.0-47.0 % [facility] F 15.2 12.0-16.0 g/dL [facility] F 2.6 1.5-3.5 10 [place] [address]/ [facility] F 29.5 27.0-31.0 pg [facility] F 33.4 32.0-36.0 g/dL [facility] F 88.2 81.0-99.0 fL [facility] F 0.9 0.0-1.0 10 [place] [address]/ [facility] F 9.1 7.9-10.8 fL [facility] F 5.2 1.5-6.6 10 [place] [address]/ [facility] F 0.0 unknown [facility] F 0.00 unknown x10 [facility] 3/uL [facility] F 326 130-450 [facility] 3/uL [facility] F 5.16 4.20-5.40 10 [facility] 6/uL [facility] F 12.7 12.0-15.0 % [facility] 9.3 4.8-10.8 x10 N [facility] 3/uL test status date ordered by attending specimen barbara e T unknown 2020-08-13 unknown unknown unknown 00:00:00 COVID-19_REFEREN unknown 2020-08-13 unknown unknown unkno wn CE_TEST 00:00:00 _2019NCoV_COVID- unknown 2020-08-13 unknown unknown unkno wn 19_Lab_Test_Resul 00:00:00 t_Text_ T unknown 2020-08-18 unknown unknown unknown 00:00:00 BASOPHILS_AUTO_ unknown 2020-08-18 unknown unknown unknow n 00:00:00 T unknown 2020-08-18 unknown unknown unknown 00:00:00 EOSINOPHILS_AUTO unknown 2020-08-18 unknown unknown unkno wn _ 00:00:00 T unknown 2020-08-18 unknown unknown unknown 00:00:00 T unknown 2020-08-18 unknown unknown unknown 00:00:00 T unknown 2020-08-18 unknown unknown unknown 00:00:00 LYMPHOCYTES_AUTO unknown 2020-08-18 unknown unknown unkno wn _ 00:00:00 T unknown 2020-08-18 unknown unknown unknown 00:00:00 T unknown 2020-08-18 unknown unknown unknown 00:00:00 T unknown 2020-08-18 unknown unknown unknown 00:00:00 T unknown 2020-08-18 unknown unknown unknown 00:00:00 MONOCYTES_AUTO_ unknown 2020-08-18 unknown unknown unknow n 00:00:00 T unknown 2020-08-18 unknown unknown unknown 00:00:00 T unknown 2020-08-18 unknown unknown unknown 00:00:00 NEUTROPHILS_AUTO unknown 2020-08-18 unknown unknown unkno wn _ 00:00:00 T unknown 2020-08-18 unknown unknown unknown 00:00:00 T unknown 2020-08-18 unknown unknown unknown 00:00:00 T unknown 2020-08-18 unknown unknown unknown 00:00:00 T unknown 2020-08-18 unknown unknown unknown 00:00:00 red_blood_cell_d unknown 2020-08-18 unknown unknown unkno wn istribution_width 00:00:00 mean_corpuscular unknown 2020-08-18 unknown unknown unkno wn _hemoglobin_RBC 00:00:00 mean_corpuscular unknown 2020-08-18 unknown unknown unkno wn _hemoglobin_conce 00:00:00 ntration_rbc neutrophil_count unknown 2020-08-18 unknown unknown unkno wn _blood 00:00:00 lymphocyte_count unknown 2020-08-18 unknown unknown unkno wn _blood 00:00:00 monocyte_count_b unknown 2020-08-18 unknown unknown unkno wn lood 00:00:00 basophil_count_b unknown 2020-08-18 unknown unknown unkno wn lood 00:00:00 mean_platelet_vo unknown 2020-08-18 unknown unknown unkno wn lume 00:00:00 eosinophil_count unknown 2020-08-18 unknown unknown unkno wn _blood 00:00:00 mean_corpuscular unknown 2020-08-18 unknown unknown unkno wn _volume_RBC 00:00:00 Hematocrit_Volum unknown 2020-08-18 unknown unknown unkno wn e_Fraction_of_Blo 00:00:00 od_by_Automated_c ount hematocrit_blood unknown 2020-08-18 unknown unknown unkno wn 00:00:00 hemoglobin_blood unknown 2020-08-18 unknown unknown unkno wn 00:00:00 platelet_count unknown 2020-08-18 unknown unknown unknown 00:00:00 Leukocytes_volum unknown 2020-08-18 unknown unknown unkno wn e_in_Blood_by_Aut 00:00:00 omated_count erythrocyte_RBC_ unknown 2020-08-18 unknown unknown unkno wn count 00:00:00 leukocyte_count_ unknown 2020-08-18 unknown unknown unkno wn blood 00:00:00 Basophils_volume unknown 2020-08-18 unknown unknown unkno wn _in_Blood_by_Manu 00:00:00 al_count eosinophil_count unknown 2020-08-18 unknown unknown unkno wn _blood 00:00:00 Hemoglobin_Mass_ unknown 2020-08-18 unknown unknown unkno wn volume_in_Blood 00:00:00 lymphocyte_count unknown 2020-08-18 unknown unknown unkno wn _blood 00:00:00 monocyte_count_b unknown 2020-08-18 unknown unknown unkno wn lood 00:00:00 neutrophil_count unknown 2020-08-18 unknown unknown unkno wn _blood 00:00:00 Platelet_mean_vo unknown 2020-08-18 unknown unknown unkno wn lume_Entitic_volu 00:00:00 me_in_Blood_by_Re es-[place] Platelets_volume unknown 2020-08-18 unknown unknown unkno wn _in_Blood_by_Auto 00:00:00 mated_count MCH_Entitic_mass unknown 2020-08-18 unknown unknown unkno wn _by_Automated_cou 00:00:00 nt MCV_Entitic_volu unknown 2020-08-18 unknown unknown unkno wn me_by_Automated_c 00:00:00 ount Erythrocyte_dist unknown 2020-08-18 unknown unknown unkno wn ribution_width_Ra 00:00:00 tio_by_Automated_ count Erythrocytes_vol unknown 2020-08-18 unknown unknown unkno wn ume_in_Blood_by_A 00:00:00 utomated_count facility observation status value reference units lab abnor mal line range code notes [facility] T unknown NEGATIVE unknown COVI unkn own unknown Primary Care D-19 [place] COVID-19_REF unknown NEGATIVE unknown COVI unknown unknown Primary Care ERENCE_TEST D19.R [facility] EF [facility] _2019NCoV_CO unknown NEGATIVE unknown _665 unknown unknown Primary Care VID-19_Lab_Te [address] [place] [facility] [address]_Result_Tex t_ [facility] T unknown 0.1 10 unknown BASO unknow n unknown Primary Care 3/UL _AUTO [facility] _ [facility] BASOPHILS_AU unknown 0.1 10 unknown BA_ unknown unknown Primary Care TO_ 3/UL [facility] T unknown 0.5 10 unknown EOS_ unknow n unknown Primary Care 3/UL AUTO_ [facility] EOSINOPHILS_ unknown 0.5 10 unknown EO_ unknown unknown Primary Care AUTO_ 3/UL [place] T unknown 45.5 unknown % HCT unknow n unknown Primary Care [place] T unknown 15.2 unknown g/dL HGB unknow n unknown Primary Care [place] T unknown 2.6 10 unknown LYMP unknow n unknown Primary Care 3/UL H_AUT [facility] O_ [facility] LYMPHOCYTES_ unknown 2.6 10 unknown LY_ unknown unknown Primary Care AUTO_ 3/UL [facility] T unknown 29.5 unknown pg MCH unknow n unknown Primary Care [place] [facility] T unknown 33.4 unknown g/dL MCHC unknow n unknown Primary Care [place] [facility] T unknown 88.2 unknown fL MCV unknow n unknown [facility] Care [place] [facility] T unknown 0.9 10 unknown MONO unknow n unknown Primary Care 3/UL _AUTO [facility] _ [facility] MONOCYTES_AU unknown 0.9 10 unknown MO_ unknown unknown Primary Care TO_ 3/UL [facility] T unknown 9.1 unknown fL MPV unknow n unknown Primary Care [place] T unknown 5.2 10 unknown NEUT unknow n unknown Primary Care 3/UL _AUTO [facility] _ [facility] NEUTROPHILS_ unknown 5.2 10 unknown NE_ unknown unknown Primary Care AUTO_ 3/UL [facility] T unknown 326 10 unknown PLT unknow n unknown Primary Care 3/UL [place] T unknown 5.16 10 unknown RBC unkno wn unknown Primary Care 6/UL [place] T unknown 12.7 unknown % RDW unknow n unknown [facility] [place] T unknown 9.3 X10 unknown WBC unkno wn unknown Primary Care 3/UL [facility] red_blood_ce unknown 12.7 unknown % _103 unknown unknown Primary Care ll_distributi 0 [facility] on_width [facility] mean_corpusc unknown 29.5 unknown pg _103 unknown unknown Primary Care ular_hemoglob 1 [facility] in_RBC [facility] mean_corpusc unknown 33.4 unknown g/dL _170 unknown unknown Primary Care ular_hemoglob 29 [facility] in_concentrat ion_rbc [facility] neutrophil_c unknown 5.2 10 unknown _241 unknown unknown Primary Care ount_blood 3/UL 8 [place] lymphocyte_c unknown 2.6 10 unknown _242 unknown unknown Primary Care ount_blood 3/UL 0 [place] monocyte_cou unknown 0.9 10 unknown _242 unknown unknown Primary Care nt_blood 3/UL 2 [place] basophil_cou unknown 0.1 10 unknown _242 unknown unknown Primary Care nt_blood 3/UL 7 [facility] mean_platele unknown 9.1 unknown fL _278 unknown unknown Primary [facility] t_volume 4 [place] eosinophil_c unknown 0.5 10 unknown _285 unknown unknown Primary Care ount_blood 3/UL [facility] mean_corpusc unknown 88.2 unknown fL _315 unknown unknown Primary Care ular_volume_R [facility] BC [facility] Hematocrit_V unknown 45.5 unknown % _454 unknown unknown Primary Care olume_Fractio 4-3 [facility] n_of_Blood_by _Automated_co unt [facility] hematocrit_b unknown 45.5 unknown % _64 unknown unknown Primary [facility] lood [facility] hemoglobin_b unknown 15.2 unknown g/dL _65 unknown unknown Primary [facility] lood [facility] platelet_cou unknown 326 10 unknown _66 unknown unknown Primary [facility] nt 3/UL [facility] Leukocytes_v unknown 9.3 X10 unknown _669 unknown unknown Primary Care olume_in_Bloo 3/UL 0-2 [facility] d_by_Automate d_count [facility] erythrocyte_ unknown 5.16 10 unknown _67 unknown unknown Primary Care RBC_count 6/UL [facility] leukocyte_co unknown 9.3 X10 unknown _68 unknown unknown Primary Care unt_blood 3/UL [facility] Basophils_vo unknown 0.1 10 unknown _705 unknown unknown Primary Care lume_in_Blood 3/UL -4 [facility] _by_Manual_co unt [facility] eosinophil_c unknown 0.5 10 unknown _712 unknown unknown Primary Care ount_blood 3/UL -0 [facility] Hemoglobin_M unknown 15.2 unknown g/dL _718 unknown unknown Primary Care ass_volume_in -7 [facility] _Blood [facility] lymphocyte_c unknown 2.6 10 unknown _732 unknown unknown [facility] ount_blood 3/UL -8 [facility] monocyte_cou unknown 0.9 10 unknown _743 unknown unknown Primary [facility] nt_blood 3/UL -5 [facility] neutrophil_c unknown 5.2 10 unknown _752 unknown unknown Primary [facility] ount_blood 3/UL -6 [facility] Platelet_mea unknown 9.1 unknown fL _776 unknown unknown Primary Care n_volume_Enti -5 [facility] tic_volume_in _Blood_by_[place] [facility] Platelets_vo unknown 326 10 unknown _777 unknown unknown Primary Care lume_in_Blood 3/UL -3 [facility] _by_Automated _count [facility] MCH_Entitic_ unknown 29.5 unknown pg _785 unknown unknown Primary [facility] mass_by_Autom -6 [facility] ated_count [facility] MCV_Entitic_ unknown 88.2 unknown fL _787 unknown unknown Primary Care volume_by_Aut -2 [facility] omated_count [facility] Erythrocyte_ unknown 12.7 unknown % _788 unknown unknown Primary [facility] distribution_ -0 [facility] width_Ratio_b y_Automated_c ount [facility] Erythrocytes unknown 5.16 10 unknown _789 unknown unknown Primary Care _volume_in_Bl 6/UL -8 [facility] ood_by_Automa ted_count Social History date description facility 2020-06-03 00:00:00 Never smoker [facility] date description facility 2020-06-11 00:00:00 Never smoker [facility] date description facility 2020-07-17 00:00:00 Never smoker [facility] date description facility 2020-07-28 00:00:00 Never smoker [facility] Social History date description facility 2020-06-03 00:00:00 Never smoker [facility] date description facility 2020-06-11 00:00:00 Never smoker [facility] date description facility 2020-07-17 00:00:00 Never smoker [facility] date description facility 2020-07-28 00:00:00 Never smoker [facility] date description facility [phone]
== END 2020-08-20 09:11 | disposition home or self-care (01) ==
LOC: SDS 09:10
PROVIDERS: ATTEND Obstetrics & Gynecology
PROC: 0UT74ZZ Resection of Bilateral Fallopian Tubes, Percutaneous Endoscopic Approach (ICD-10-PCS; principal; 2020-08-20 10:45)
DX: Z30.2 Encounter for sterilization (principal); Z30.432 Encounter for removal of intrauterine contraceptive device; J45.909 Unspecified asthma, uncomplicated; Z79.51 Long term (current) use of inhaled steroids; Z79.899 Other long term (current) drug therapy
CPT/HCPCS: 58661; 81025; A9270; J0131; J7120

== ENCOUNTER 2020-08-24 18:17 | Emergency (ER) | payer BC ==
[2020-08-24 18:27] VITALS: BP 125/82
--- NOTE | 2020-08-24 18:43 | ED Physician Documentation ---
History of Present Illness - Stated complaint Stated Complaint: INCISION BLEEDING AFTER SURGERY - Chief complaint Chief Complaint: Wound - History obtained from History obtained from: Patient - History of Present Illness Timing: Today Pain level max: 0 Pain level now: 0 - Additonal information Additional information: 34-year-old female presents to the emergency department stating that she had a tubal ligation 4 days ago. She states that there is bleeding from under the incision sites tonight. Nothing makes it better or worse. No fevers. No chills. Does have a rash to the abdomen. Started after surgery. She states that this is itchy. The rash is nowhere else. No abdominal pain. Review of Systems Constitutional: denies: Fever, Chills Cardiac: denies: Chest pain / pressure Respiratory: denies: Cough GI: denies: Vomiting, Diarrhea Skin: denies: Rash Musculoskeletal: denies: Neck pain, Back pain Neurologic: denies: Headache PD PAST MEDICAL HISTORY - Past Medical History Past Medical History: Yes Cardiovascular: None Respiratory: Asthma, Pneumonia Endocrine/Autoimmune: None GI: None SAFETY SPEC: None : None HEENT: Chronic vision loss Psych: Panic attacks Musculoskeletal: None Derm: None - Past Surgical History Past Surgical History: Yes /SAFETY SPEC: section - Present Medications Home Medications: Ambulatory Orders Medication Instructions Recorded Confirmed Albuterol Sulfate [Proair Hfa 1 - 2 puffs INH Q4H PRN 08/10/20 08/19/20 Inhaler] EPINEPHrine [Epinephrine] 0.3 mg IJ ONCE PRN 08/10/20 08/10/20 Acetaminophen [Tylenol] 650 mg PO Q6H PRN #90 tablet 08/20/20 Docusate Sodium 100Mg Capsule 100 - 200 mg PO BID PRN #60 capsule 08/20/20 [Colace 100Mg Capsule] Ibuprofen [Motrin] 600 mg PO Q6H PRN #90 tab 08/20/20 - Allergies Allergies/Adverse Reactions: Allergies Allergy/AdvReac Type Severity Reaction Status Date / Time bee venom protein (honey bee) Allergy Anaphylaxis Verified 08/24/20 18:26 Penicillins Allergy Unknown Verified 08/24/20 18:26 - Social History Does the pt smoke?: No Smoking Status: Never smoker Does the pt drink ETOH?: No Does the pt have substance abuse?: No - Immunizations Immunizations are current?: Yes Immunizations: TDAP >10years/unknown - POLST Patient has POLST: No PD ED PE NORMAL - Vitals Vital signs reviewed: Yes - General General: Alert and oriented X 3, No acute distress - HEENT HEENT: Moist mucous membranes - Abdomen Abdomen: Soft, Non tender, Non distended, Other (Incisions are clean. Dry. Small amount of dried blood from the lower right quadrant incision. Mild light pink rash across the abdomen.) - Derm Derm: Warm and dry - Neuro Neuro: Alert and oriented X 3 - Psych Psych: Normal mood, Normal affect Results - Vitals Vitals: Vital Signs - 24 hr 08/24/20 18:23 Temperature 36.9 C Heart Rate 77 Respiratory 16 Rate Blood Pressure 125/82 H O2 Saturation 99 Oxygen O2 Source Room air PD MEDICAL DECISION MAKING - ED course Complexity details: considered differential, d/w patient ED course: Dermabond was applied to the slightly dehisced incision. No further bleeding. Does have a light pink abdominal rash. She does not know what medication she is on, therefore I spoke with Dr. Hurtado, OB-SAFETY SPEC on-call she states that they do not routinely use antibiotics after surgery. We will have the patient trial Benadryl at home and have her follow-up with program therapist as scheduled. Patient counseled regarding signs and symptoms for which I believe and urgent re- evaluation would be necessary. Patient with good understanding of and agreement to plan and is comfortable going home at this time This document was made in part using voice recognition software. While efforts are made to proofread this document, sound alike and grammatical errors may occur. Departure - Departure Disposition: 01 Home, Self Care Clinical Impression: Wound dehiscence, Rash Condition: Good Instructions: ED Dermatitis Non Specific Rash, ED Wound Check Post Op Bleeding Follow-Up: Shikha Casillas PA [Primary Care Provider] - Rosalinda Cadena MD [Provider Admit Priv/Credential] - Comments: Continue your current medications at home. The rash is likely a contact rash from a substance that was used during surgery. However it could be due to the oxycodone that you were prescribed as well. You can use Benadryl for any rash. Return if you worsen.
== END 2020-08-24 18:50 | disposition home or self-care (01) ==
LOC: ED 18:17
DX: T81.31XA Disruption of external operation (surgical) wound, not elsewhere classified, initial encounter (principal); N99.89 Other postprocedural complications and disorders of genitourinary system; Z98.51 Tubal ligation status
CPT/HCPCS: 99282

== ENCOUNTER 2021-12-11 09:42 | Outpatient (CLI) | payer BC ==
[2021-12-11 14:42] LABS: BASOPHILS # (AUTO) 0.1 10^3/uL (0.0-0.1); BASOPHILS % (AUTO) 0.8 %; EOSINOPHILS # (AUTO) 0.4 10^3/uL (0.0-0.7); EOSINOPHILS % (AUTO) 4.6 %; HCT - HEMATOCRIT 44.7 % (37.0-47.0); HGB - HEMOGLOBIN 14.9 g/dL (12.0-16.0); LYMPHOCYTES # (AUTO) 1.9 10^3/uL (1.5-3.5); LYMPHOCYTES % (AUTO) 23.7 %; MEAN CORPUSCULAR HEMOGLOBIN 29.4 pg (27.0-31.0); MEAN CORPUSCULAR HGB CONC 33.3 g/dL (32.0-36.0); MEAN CORPUSCULAR VOLUME 88.3 fL (81.0-99.0); MEAN PLATELET VOLUME 10.1 fL (7.9-10.8); MONOCYTES # (AUTO) 0.7 10^3/uL (0.0-1.0); MONOCYTES % (AUTO) 8.7 %; NEUTROPHILS # (AUTO) 4.8 10^3/uL (1.5-6.6); NEUTROPHILS % (AUTO) 61.9 %; PLT - PLATELET COUNT 351 10^3/uL (130-450); RED BLOOD COUNT 5.06 10^6/uL (4.20-5.40); RED CELL DISTRIBUTION WIDTH 12.9 % (12.0-15.0); WHITE BLOOD COUNT 7.8 x10^3/uL (4.8-10.8)
[2021-12-11 14:59] LABS: ALBUMIN 4.2 g/dL (3.2-5.5); ALBUMIN/GLOBULIN RATIO 1.4 (1.0-2.2); ALKALINE PHOSPHATASE 60 IU/L (42-121); ALT ALANINE AMINOTRANSFERASE 18 IU/L (10-60); AST ASPARTATE AMINOTRANSFERASE 19 IU/L (10-42); BILIRUBIN,TOTAL 1.2 mg/dL (0.2-1.0); BUN - BLOOD UREA NITROGEN 19 mg/dL (6-20); CALCIUM 9.2 mg/dL (8.5-10.3); CARBON DIOXIDE - CO2 26 mmol/L (21-32); CHLORIDE 102 mmol/L (101-111); CHOL/HDL RATIO 2.3 (<4.4); CHOLESTEROL 153 mg/dL; CREATININE 0.5 mg/dL (0.4-1.0); GFR - MDRD 139 (>89); GLUCOSE 87 mg/dL (70-100); HDL CHOLESTEROL 66 mg/dL; LDL CHOLESTEROL,CALCULATED 77 mg/dL; LDL/HDL RATIO 1.2 (<4.4); POTASSIUM 4.2 mmol/L (3.5-5.0); SODIUM 137 mmol/L (135-145); TOTAL PROTEIN 7.3 g/dL (6.7-8.2); TRIGLYCERIDES 49 mg/dL; VLDL CHOLESTEROL 10 mg/dL
[2021-12-11 15:09] LABS: THYROID STIMULATING HORMONE 1.51 uIU/mL (0.34-5.60)
[2021-12-11 15:37] LABS: FOLLICLE STIMULATING HORMONE 5.65 mIU/mL
== END 2021-12-11 09:43 | disposition home or self-care (01) ==
LOC: LAB.N 09:42
PROVIDERS: ATTEND Physician Assistant
DX: N92.0 Excessive and frequent menstruation with regular cycle (principal); Z13.9 Encounter for screening, unspecified; Z13.220 Encounter for screening for lipoid disorders; Z13.29 Encounter for screening for other suspected endocrine disorder; N89.8 Other specified noninflammatory disorders of vagina
CPT/HCPCS: 36415; 80053; 80061; 81514; 82306; 83001; 83721; 84443; 85025

== ENCOUNTER 2022-11-03 00:27 | Outpatient (CLI) | payer OTHER, BC | END 2022-11-03 23:59 | disposition critical access hospital (66) | LOC: EMS 00:27 | DX: R06.02 Shortness of breath (principal); R07.1 Chest pain on breathing; Z57.2 Occupational exposure to dust; Y92.59 Other trade areas as the place of occurrence of the external cause; Y99.0 Civilian activity done for income or pay | CPT/HCPCS: A0425; A0429 ==

== ENCOUNTER 2022-11-03 00:55 | Emergency (ER) | payer OTHER, BC ==
[2022-11-03] MEDS ORDERED: predniSONE 20 MG TABLET PO STA (01:38)
[2022-11-03] MEDS ORDERED: IPRATROPIUM/ALBUTEROL 3 ML NEB INH STA (01:39)
--- NOTE | 2022-11-03 02:50 | ED Physician Documentation ---
PD HPI DYSPNEA - Stated complaint Stated Complaint: ALLERGIC REACTION TO DUST - Chief complaint Chief Complaint: Resp - History obtained from History obtained from: Patient - Additional information Additional information: HPI from patient. Patient says she was dusting at work tonight and at approximately 7:30 PM she felt the dust "got in to my lungs" (per patient) causing shortness of breath, chest tightness, and dry cough. She used her albuterol inhaler without improvement. She does have a history of asthma. Review of Systems Constitutional: denies: Fever Cardiac: denies: Chest pain / pressure, Palpitations Respiratory: reports: Dyspnea, Cough. 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 - Present Medications Home Medications: Ambulatory Orders Medication Instructions Recorded Confirmed Albuterol Sulfate [Proair Hfa 1 - 2 puffs INH Q4H PRN 08/10/20 08/19/20 Inhaler] EPINEPHrine [Epinephrine] 0.3 mg IJ ONCE PRN 08/10/20 08/10/20 Acetaminophen [Tylenol] 650 mg PO Q6H PRN #90 tablet 08/20/20 Docusate Sodium 100Mg Capsule 100 - 200 mg PO BID PRN #60 capsule 08/20/20 [Colace 100Mg Capsule] Ibuprofen [Motrin] 600 mg PO Q6H PRN #90 tab 08/20/20 predniSONE [Deltasone] 40 mg PO DAILY 3 Days #6 tablet 11/03/22 - Allergies Allergies/Adverse Reactions: Allergies Allergy/AdvReac Type Severity Reaction Status Date / Time bee venom protein (honey bee) Allergy Anaphylaxis Verified 08/24/20 18:26 Penicillins Allergy Unknown Verified 08/24/20 18:26 - Social History Does the pt smoke?: No Smoking Status: Never smoker Does the pt drink ETOH?: No Does the pt have substance abuse?: No - Immunizations Immunizations are current?: Yes Immunizations: TDAP >10years/unknown - POLST Patient has POLST: No PD ED PE NORMAL - Vitals Vital signs reviewed: Yes - General General: Alert and oriented X 3, No acute distress, Well developed/nourished - Cardiac Cardiac: RRR, No murmur - Respiratory Respiratory: No respiratory distress, Other (decreased breath sounds all lung romero (unclear if this is due to bronchoconstriction or poor inspiratory effort)) Results - Vitals Vitals: Vital Signs - 24 hr 11/03/22 11/03/22 11/03/22 01:49 01:50 02:00 Temperature 36.6 C Heart Rate 81 82 84 Respiratory 18 18 15 Rate Blood Pressure 118/81 H 107/78 O2 Saturation 96 99 11/03/22 04:08 Temperature 36.4 C L Heart Rate 95 Respiratory 95 H Rate Blood Pressure 117/79 O2 Saturation 99 Oxygen O2 Source Room air - Rads (name of study) chest xray Relevant Findings:: Prelim report reviewed, EMP independent interpretation of test (I reviewed this study and my interpretation is no acute cardiopulmonary abnormality; specifically, no evidence of infiltrate, pneumothorax), See rad report PD Medical Decision Making - ED course Complexity details: reviewed results, re-evaluated patient, considered differential, d/w patient ED course: Patient presents with chief complaint of dyspnea and sensation of chest constriction. She has a history of asthma, and she feels that the inciting event leading to the symptoms was when she breathed in heavy dust while dusting at work tonight. She is given a DuoNeb in the emergency department and on reevaluation, she is moving air well with lungs clear to auscultation bilaterally without wheezes, rales, rhonchi. Her pulse ox is upper 90s on room air throughout her ED stay. Because of the difficulty in auscultating her breath sounds on initial evaluation (as noted above, it was unclear if this was due to bronchoconstriction or poor inspiratory effort), a chest x-ray was undertaken and there are no acute findings on this study including no evidence of infiltrate/pneumonia or pneumothorax. She is also given 40 mg prednisone p.o. Overall, this scenario would be more suggestive of an asthma exacerbation t riggered by dust rather than a true allergic reaction. A prescription for 3 more days (a total of 4 considering the dose given in the emergency department) is electronically sent to her pharmacy of choice. She has her albuterol MDI with her, which is not and there are many doses remaining. Return precautions are discussed. Departure - Departure Disposition: Home, Self Care Clinical Impression: Bronchospasm, acute Condition: Good Instructions: ED Reactive Airway Disease Prescriptions: predniSONE [Deltasone] 40 mg PO DAILY 3 Days #6 tablet Comments: There are no abnormalities on your chest x-ray. In regards to your lung exam, you were not moving air very well initially, but after the neb treatment in the emergency department, your reexam using the stethoscope did reveal that you were moving air very well without any abnormal breath sounds such as wheezing. A prescription for prednisone (steroid) has been electronically submitted to [facility] in [place]. This is to be taken once a day for the next 3 days. You can take the first dose at any time this afternoon or evening, and then take the subsequent doses approximately same time the following days. Discharge Date/Time: 11/03/22 04:12
[2022-11-03 04:12] VITALS: BP 117/79
--- NOTE | 2022-11-03 07:54 | XRAY Report ---
PROCEDURE: Chest 2 View X-Ray INDICATIONS: dyspnea TECHNIQUE: 2 views of the chest were acquired. COMPARISON: 03/13/2017 FINDINGS: Surgical changes and devices: None. Lungs and pleura: No pleural effusions or pneumothorax. Lungs are clear. Mediastinum: Mediastinal contours are normal. Heart size is normal. Bones and chest wall: No suspicious bony abnormalities. Soft tissues appear unremarkable. IMPRESSION: Chest without acute cardiopulmonary abnormalities or focal airspace disease. No significant discrepancy with initial interpretation by overnight radiologist. Reviewed by: Otilio Mukherjee MD on 11/03/2022 7:52 AM PDT Approved by: Otilio Mukherjee MD on 11/03/2022 7:52 AM PDT Station ID: [id number]
== END 2022-11-03 04:12 | disposition home or self-care (01) ==
LOC: EDUNIT# → ED 00:55
DX: J98.01 Acute bronchospasm (principal)
CPT/HCPCS: 71046; 94640; 94664; 99283; 99284; J7512

== ENCOUNTER 2023-04-15 13:21 | Outpatient (CLI) | payer BC ==
--- NOTE | 2023-04-15 18:37 | Ultrasound Report ---
PROCEDURE: Pelvic w/Transvaginal INDICATIONS: HEAVY MENSTRUATION TECHNIQUE: Real-time scanning was performed of the pelvic organs, with image documentation. Additional endovagi nal scanning was necessary due to incomplete visualization of the adnexal and endometrial structures by transabdominal scanning. COMPARISON: 06/25/2019 FINDINGS: Uterus: Uterus is anteverted and normal in size at 7.9 x 3.5 x 4.2 cm. The myometrium is homogeneou s. The endometrium measures 4 mm in combined thickness. There is a 1.7 submucosal fibroid seen ante riorly. Nabothian cysts are incidentally noted. Ovaries: The right ovary measures 1.7 x 2 x 1.3 cm, with a calculated ovarian volume of 2.4 cc. The left ovary measures 2.2 x 1.3 x 2.4 cm, with a calculated ovarian volume of 3.7 cc. The ovaries hav e a normal sonographic appearance. Less than 12 follicles can be seen in each ovary. No adnexal mas ses are seen. No cystic lesions measuring greater than 3 cm. Other: No pathologic free abdominal or pelvic fluid. IMPRESSION: 1.7 cm submucosal fibroid seen, which is a potential cause of abnormal menstrual bleedin g. Reviewed by: Tavo Bridges MD on 04/15/2023 5:35 PM [facility] Approved by: Tavo Bridges MD on 04/15/2023 5:35 PM [facility]ID[facility] Station ID: [id number]
== END 2023-04-15 13:22 | disposition home or self-care (01) ==
LOC: DI 13:21
PROVIDERS: ATTEND Physician Assistant Medical
DX: N92.0 Excessive and frequent menstruation with regular cycle (principal); D25.0 Submucous leiomyoma of uterus

== ENCOUNTER 2023-05-25 08:00 | Outpatient (CLI) | payer BC ==
[2023-05-25 19:46] LABS: BACTERIAL VAGINOSIS DNA NEGATIVE (NEGATIVE); CANDIDA GLABRATA DNA NEGATIVE (NEGATIVE); CANDIDA GROUP DNA NEGATIVE (NEGATIVE); CANDIDA KRUSEI DNA NEGATIVE (NEGATIVE); TRICHOMONAS VAGINALIS DNA NEGATIVE (NEGATIVE)
[2023-05-25 21:05] LABS: CHLAMYDIA TRACHOMATIS DNA NEGATIVE (NEGATIVE); NEISSERIA GONORRHOEAE DNA NEGATIVE (NEGATIVE)
== END 2023-05-25 23:59 | disposition home or self-care (01) ==
LOC: LAB.WCP 08:00
PROVIDERS: ATTEND Physician Assistant Medical
DX: N76.0 Acute vaginitis (principal); R35.0 Frequency of micturition
CPT/HCPCS: 81514; 87086; 87491; 87591; 87661

== ENCOUNTER 2023-07-02 19:40 | Emergency (ER) | payer BC ==
[2023-07-02 19:53] VITALS: BP 129/80; O2SAT 98
[2023-07-02] MEDS ORDERED: IBUPROFEN 600 MG TABLET PO STA (19:58)
[2023-07-02] MEDS ORDERED: HYDROcod/ACETAM 5/325 MG TABLET PO STA (19:58)
--- NOTE | 2023-07-02 20:00 | ED Physician Documentation ---
PD HPI UPPER EXT INJURY - Stated complaint Stated Complaint: RT HAND INJ - Chief complaint Chief Complaint: Trauma Ext - History obtained from History obtained from: Patient - Additonal information Additional information: The patient comes to the emergency department chief complaint of right thumb and radial hand pain after accidentally hitting it on the edge of a ceramic sink. She states that she was in the bathroom at the grocery store, trying to give her child a SWAT for discipline when the child moved out of the way and her hand hit the sink instead of swatting the child's bottom. She states that she immediately had pain through the thenar eminence and into the joint and proximal aspect of the thumb. She states that in the several hours since the area is swollen up and that it hurts to move it at all. She denies any injury to any other part of her body. She can move the wrist and she can move the other fingers. No prior injury to this area. No other complaints at this time. 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 - Present Medications Home Medications: Ambulatory Orders Medication Instructions Recorded Confirmed Albuterol Sulfate [Proair Hfa 1 - 2 puffs INH Q4H PRN 08/10/20 08/19/20 Inhaler] EPINEPHrine [Epinephrine] 0.3 mg IJ ONCE PRN 08/10/20 08/10/20 Acetaminophen [Tylenol] 650 mg PO Q6H PRN #90 tablet 08/20/20 Docusate Sodium 100Mg Capsule 100 - 200 mg PO BID PRN #60 capsule 08/20/20 [Colace 100Mg Capsule] Ibuprofen [Motrin] 600 mg PO Q6H PRN #90 tab 08/20/20 predniSONE [Deltasone] 40 mg PO DAILY 3 Days #6 tablet 11/03/22 - Allergies Allergies/Adverse Reactions: Allergies Allergy/AdvReac Type Severity Reaction Status Date / Time bee venom protein (honey bee) Allergy Anaphylaxis Verified 07/02/23 19:49 Penicillins Allergy Unknown Verified 07/02/23 19:49 - Social History Does the pt smoke?: No Smoking Status: Never smoker Does the pt drink ETOH?: No Does the pt have substance abuse?: No - Immunizations Immunizations are current?: Yes Immunizations: TDAP >10years/unknown - POLST Patient has POLST: No PD ED PE NORMAL - Vitals Vital signs reviewed: Yes - General General: Alert and oriented X 3, No acute distress, Well developed/nourished - HEENT HEENT: Atraumatic, EOMI, Moist mucous membranes - Neck Neck: Supple, no meningeal sign - Cardiac Cardiac: Strong equal pulses - Respiratory Respiratory: No respiratory distress - Derm Derm: Normal color, Warm and dry, No rash - Extremities Extremities: No deformity, Other (Mild edema with tenderness to palpation over right thenar eminence. Tenderness extends to proximal thumb over the proximal phalanx. No deformity. Limited range of motion secondary to pain.) - Neuro Neuro: Alert and oriented X 3, No motor deficit, No sensory deficit, Other (The patient is able to make some of the thumb extension required for the "thumbs up" sign, as well as some of the motion to oppose thumb and small finger. She is able to make the "okay" sign, though slowly, secondary to pain.) - Psych Psych: Normal mood, Normal affect Results - Vitals Vitals: Vital Signs - 24 hr 07/02/23 19:46 Temperature 36.7 C Heart Rate 78 Respiratory 16 Rate Blood Pressure 129/80 O2 Saturation 98 Oxygen O2 Source Room air PD Medical Decision Making - ED course Complexity details: reviewed results, re-evaluated patient, considered diffe rential, d/w patient, d/w family ED course: The patient was worked up with x-ray series of her right hand. The patient's x- ray was negative. She was advised of the results and deemed stable for discharge home. We have discussed the usual indications for return as well as symptomatic management at home. Departure - Departure Disposition: 01 Home, Self Care Clinical Impression: Contusion, hand Qualifiers: Encounter type: initial encounter Laterality: right Qualified Code(s): S60.221A - Contusion of right hand, initial encounter Condition: Stable Instructions: ED Contusion Hand Comments: Your x-ray series looks good. There is no evidence of any break, large or small, of any of the bones of your hand or your thumb. The radiologist is also officially read your x-rays as negative. Most likely, you have bruised the muscular tissue just below your thumb which can be painful in and of itself and also, can cause pain with movement. You may use ice, ibuprofen, and Tylenol to help with the discomfort. In general, the sort of injury should start to noticeably improve over the next week. If you feel that there is no improvement after the next couple weeks, you should have the hand marcell-rayed to be sure there is not a very fine crack but did not show up. Forms: PCP List
--- NOTE | 2023-07-02 20:17 | XRAY Report ---
PROCEDURE: Hand 3 View RT INDICATIONS: R thumb injury/c/o pain TECHNIQUE: 3 views of the hand(s) acquired. COMPARISON: None. FINDINGS: Bones: No fractures or dislocations. No suspicious bony lesions. Soft tissues: No suspicious soft tissue calcifications or masses. IMPRESSION: No visualized acute fracture or dislocation. However, occult injury cannot be excluded. Recommend abimael rt interval imaging follow-up in 7-10 days as clinically indicated for additional evaluation. Reviewed by: Allie Bang MD on 07/02/2023 8:16 PM PST Approved by: Allie Bang MD on 07/02/2023 8:16 PM PST Station ID: [id number]
== END 2023-07-02 20:31 | disposition home or self-care (01) ==
LOC: ED 19:40
DX: S60.221A Contusion of right hand, initial encounter (principal); W22.09XA Striking against other stationary object, initial encounter; Y93.89 Activity, other specified; Y92.512 Supermarket, store or market as the place of occurrence of the external cause
CPT/HCPCS: 73130; 99282; 99283; A9270

== ENCOUNTER 2023-07-20 08:00 | Outpatient (CLI) | payer BC | END 2023-07-20 23:59 | disposition home or self-care (01) | LOC: LAB.WCP 08:00 | PROVIDERS: ATTEND Physician Assistant Medical | DX: R35.0 Frequency of micturition (principal) | CPT/HCPCS: 87086 ==